=== PATIENT | male | born 1940 | race Caucasian/White ===

== ENCOUNTER 2018-01-06 22:56 | Inpatient (IN) | payer OTHER, MEDICARE ==
[~2018-01-06] VITALS: Ht 188 cm; Wt 96.0 kg
[~2018-01-06 22:56] MED LIST: ALEN70TA39 PO; ALPR0.25 PO; ASPI81 PO; CHOL50006 PO; CILO100T PO; COZA100T PO; GABA300C3 PO; GLIP5TAB8 PO; LANTUS2P SC; LASI20TA PO; LEVO.075 PO; METO50CR PO; NOVOLOGP2 SQ; PANT20 PO; POLY17S PO; RIFA550 PO; TAB-TAB PO; TRAD5TAB PO; ZOCO40TA PO; ZOFR4TAB3 PO
[2018-01-06 23:08] VITALS: BP 163/77; PULSE 99; RESP 18; TEMP 98.4; O2SAT 99
[2018-01-06] MEDS ORDERED: SODIUM CHLORIDE 0.9% FLUSH 10 ML FLUSH IV FLUSH PRN (23:15)
--- NOTE | 2018-01-06 23:34 | PD ---
HPI Chief Complaint: Fall Time Seen by Provider: 23:09 Travel History International Travel<30 days: No Contact w/Intl Traveler<30days: No Traveled to known affect area: No History of Present Illness HPI 77-year-old male with history of liver cancer, ascites, on Eliquis for A. fib, brought in by ambulance from home for evaluation after a mechanical fall. The patient reports that he was on his steps at home when he fell. He denies head injury or LOC. He now complains of neck and anterior chest wall pain. He denies pain in any other joint or extremity. EMS noted that he has several skin tears on his upper and lower extremities that are in various stages of healing. They did apply sterile dressings to these wounds. Patient denies abdominal or pelvis pain. PFSH Past Medical History Hx Anticoagulant Therapy: Yes Blood Disorders: No Heart Rhythm Problems: Yes (ATR. FIB) Cancer: No Cardiovascular Problems: Yes (TRIPLE BYPASS, PAD) High Cholesterol: Yes Chemotherapy: Yes (LIVER CA ) Diabetes: Yes Diminished Hearing: No Endocrine: Yes Gastrointestinal Disorders: No Genitourinary: No Hepatitis: No Hiatal Hernia: No Hypertension: Yes Immune Disorder: No Musculoskeletal: No Neurologic: No Psychiatric: No Reproductive: No Respiratory: Yes (copd, sleep apnea) Immunizations Current: Yes Myocardial Infarction: Yes (x1) Sleep Apnea: Yes (CPAP) Thyroid Disease: Yes Past Surgical History AICD: No Appendectomy: Yes Arteriovenous Shunt: No Cardiac Surgery: Yes (carotid surgery misael, triple by-pass) Eye Surgery: Yes (cataract removal) Insulin Pump: No Joint Replacement: No Pacemaker: No Other Surgery: Yes Social History Alcohol Use: No Tobacco Use: No Substance Use: No Allergies-Medications (Allergen,Severity, Reaction): Coded Allergies: No Known Allergies (Verified Adverse Reaction, Unknown, 01/06/18) Reported Meds & Prescriptions Reported Meds & Active Scripts Active Lasix (Furosemide) 20 Mg Tab 20 Mg PO DAILY 14 Days Polyethylene Glycol 3350 (Polyethylene Glycol) 3,350 Nf Pow 17 Gm PO DAILY 7 Days Reported Zofran ODT (Ondansetron HCl) 4 Mg Tab 4 Mg PO Q6HR Protonix (Pantoprazole Sodium) 20 Mg Tabdr 20 Mg PO DAILY Vitamin D (Cholecalciferol) 5,000 Unit Tab 2,000 Unit PO DAILY Lantus (Insulin Glargine) 100 Units/Ml Inj 1 Unit SC HS Novolog (Insulin Aspart) 100 Units/ML Inj 10 Units SQ DAILY Zocor 40 mg (Simvastatin) 40 Mg Tab 1 Tab PO HS Xifaxan 550 Mg Tab (Rifaximin) 550 Mg Tab 550 Mg PO BID Tradjenta (Linagliptin) 5 Mg Tab 5 Mg PO DAILY Alendronate Sodium 70 Mg Tab 70 Mg PO Q7D Glipizide 5 Mg Tab 5 Mg PO BIDAC GIVE 30 MINUTES PRIOR TO A MEAL Multivitamin (Multivitamins) 1 Tab Tab 1 Tab PO BID Gabapentin 300 Mg Cap 300 Mg PO BID Alprazolam 0.25 Mg Tab 0.25 Mg PO PRN Synthroid (Levothyroxine Sodium) 75 Mcg Tab 75 Mcg PO DAILY Metoprolol Succinate ER (Metoprolol Succinate) 50 Mg Tab 50 Mg PO DAILY Cozaar (Losartan Potassium) 100 Mg Tab 100 Mg PO DAILY Pletal (Cilostazol) 100 Mg Tab 100 Mg PO BID Aspirin 81 Mg Tab 81 Mg PO DAILY stopped on the 21 of january Review of Systems Except as stated in HPI: all other systems reviewed are Neg Physical Exam Narrative GENERAL: Well-developed, well-nourished, elderly-appearing male, awake, alert, no apparent distress, GCS 15. SKIN: Focused skin assessment warm/dry. Bilateral upper and lower extremities with areas of ecchymosis in various stages of healing as well as several skin tears in various stages of healing. HEAD: Atraumatic. Normocephalic. EYES: Pupils equal and round. No scleral icterus. No injection or drainage. ENT: No nasal bleeding or discharge. Mucous membranes pink and moist. NECK: Trachea midline. No JVD. No rigid cervical collar placed by EMS in place. There is midline cervical spine tenderness without step-off. CARDIOVASCULAR: Regular rate and rhythm. RESPIRATORY: No accessory muscle use. Clear to auscultation. Breath sounds equal bilaterally. GASTROINTESTINAL: Abdomen soft, non-tender, distended with fluid wave. MUSCULOSKELETAL: No obvious deformities. No clubbing. No cyanosis. No edema. Moderate anterior chest wall tenderness without crepitus, without step-off, without paradoxical chest wall movement. Pelvis is stable. Normal range of motion in all joints and extremities without obvious bony deformities. Skin exam as above. NEUROLOGICAL: Awake and alert. No obvious cranial nerve deficits. Motor grossly within normal limits. Normal speech. Normal range of motion in all joints and extremities with normal muscle strength. PSYCHIATRIC: Appropriate mood and affect; insight and judgment normal. Data Data Last Documented VS Vital Signs Date Time Temp Pulse Resp B/P (MAP) Pulse Ox O2 Delivery O2 Flow Rate FiO2 01/07/18 01:50 56 18 168/80 (109) 100 Room Air 01/06/18 23:08 98.4 Orders Orders Complete Blood Count With Diff (01/06/18 23:15) Comprehensive Metabolic Panel (01/06/18 23:15) Prothrombin Time / Inr (Pt) (01/06/18 23:15) Act Partial Throm Time (Ptt) (01/06/18 23:15) Iv Access Insert/Monitor (01/06/18 23:15) Ecg Monitoring (01/06/18 23:15) Oximetry (01/06/18 23:15) Sodium Chloride 0.9% Flush (Ns Flush) (01/06/18 23:15) Ct Brain W/O Iv Contrast(Rout) (01/06/18 ) Ct Cerv Spine W/O Contrast (01/06/18 ) Chest, Single Ap (01/06/18 ) Pelvis, Ap Only (Routine) (01/06/18 ) Electrocardiogram (01/07/18 ) Calcium Gluconate Inj (Calcium Gluconate (01/07/18 00:30) Insulin Human Regular Inj (Novolin R Inj (01/07/18 00:30) Sodium Polysty Sulfate Liq (Kayexalate L (01/07/18 00:30) Ckmb (Isoenzyme) Profile (01/07/18 00:29) Troponin I (01/07/18 00:29) Sodium Chlor 0.9% 1000 Ml Inj (Ns 1000 M (01/07/18 00:30) Ct Thorax/ Chest Wo Iv Contras (01/07/18 ) Urinary Catheter Insert/Apply (01/07/18 00:36) Morphine Inj (Morphine Inj) (01/07/18 01:00) [place] Collar (01/07/18 ) CKMB (01/06/18 22:36) CKMB% (01/06/18 22:36) Labs Laboratory Tests Test 01/06/18 22:36 White Blood Count 13.0 TH/MM3 Red Blood Count 5.33 MIL/MM3 Hemoglobin 16.0 GM/DL Hematocrit 47.3 % Mean Corpuscular Volume 88.7 FL Mean Corpuscular Hemoglobin 29.9 PG Mean Corpuscular Hemoglobin Concent 33.8 % Red Cell Distribution Width 15.7 % Platelet Count 183 TH/MM3 Mean Platelet Volume 7.7 FL Neutrophils (%) (Auto) 86.1 % Lymphocytes (%) (Auto) 3.6 % Monocytes (%) (Auto) 10.0 % Eosinophils (%) (Auto) 0.2 % Basophils (%) (Auto) 0.1 % Neutrophils # (Auto) 11.2 TH/MM3 Lymphocytes # (Auto) 0.5 TH/MM3 Monocytes # (Auto) 1.3 TH/MM3 Eosinophils # (Auto) 0.0 TH/MM3 Basophils # (Auto) 0.0 TH/MM3 CBC Comment AUTO DIFF Differential Comment FINAL DIFF MANUAL Platelet Estimate NORMAL Platelet Morphology Comment NORMAL Prothrombin Time 12.7 SEC Prothromb Time International Ratio 1.3 RATIO Activated Partial Thromboplast Time 28.9 SEC Blood Urea Nitrogen 45 MG/DL Creatinine 1.94 MG/DL Random Glucose 345 MG/DL Total Protein 6.8 GM/DL Albumin 3.3 GM/DL Calcium Level 9.1 MG/DL Alkaline Phosphatase 932 U/L Aspartate Amino Transf (AST/SGOT) 115 U/L Alanine Aminotransferase (ALT/SGPT) 133 U/L Total Bilirubin 1.4 MG/DL Sodium Level 119 MEQ/L Potassium Level 6.9 MEQ/L Chloride Level 84 MEQ/L Carbon Dioxide Level 24.5 MEQ/L Anion Gap 11 MEQ/L Estimat Glomerular Filtration Rate 34 ML/MIN Total Creatine Kinase 134 U/L Troponin I 0.07 NG/ML [facility] Medical Decision Making Medical Screen Exam Complete: Yes Emergency Medical Condition: Yes Differential Diagnosis Mechanical fall, intracranial trauma, cervical spine injury, intrathoracic trauma Narrative Course Initial vital signs show heart rate 99, blood pressure 163/77, pulse ox 99% on room air, oral temp of 98.4F. CBC: WBC 13, hemoglobin 16, hematocrit 47.3, platelets 183, neutrophils 86%. CMP is remarkable for sodium 119, potassium 6.9, chloride 84, BUN 45, cranny 1.94, GFR 34, random glucose 345, AST 115, ALT 133, alkaline phosphatase 932. Patient was written for IV insulin, Kayexalate, liter normal saline IV, and a Rivera catheter. I discussed the patient with on-call clinical resource director Dr. Das. I believe the patient's lab values are likely secondary to dehydration. He agrees with aforementioned management. CT brain: CONCLUSION: 1. Age-appropriate atrophy. 2. No acute findings the brain. CT cervical spine: CONCLUSION: 1. Fractures at C2 involving the left body, junction of the left pedicle, and displaced fracture of the right lamina. Presumed Concentric impression upon the cord at this level. 2. Displaced fracture of the right lamina of C3 indenting on the bony spinal canal. 3. Right-sided facet fractures involving inferior articular facet of C3 and superior articular facet of C4. No evidence of locked or perched facets. 4. Mildly comminuted fracture of the C7 vertebral body with one fracture line extending from superior to inferior endplate. No associated compression deformity. CT thorax: CONCLUSION: 1. Nondisplaced fracture of the posterolateral right 9th rib with a moderate size right pleural effusion. 2. No focal opacities in the lung and no evidence of pneumothorax. Patient was made aware of all findings. Again he is able to move all of his extremities. He continues to complain of neck pain. He tells me he has been having several falls recently. Case discussed with on-call neurosurgeon Dr. Nesbitt who recommends [place] collar and will evaluate the patient in consultation. Case discussed with licensed [employer] real [employer] appraiser Dr. Deal. Although the patient does have traumatic injuries, he does have severe metabolic derangements and would be better served on the licensed [employer] appraiser service. He agrees to admit the patient to his service. Critical Care Narrative Aggregate critical care time was 35 minutes. Time to perform other separately billable procedures was not included in the critical care time. My time did not include minutes spent treating any other patients simultaneously or on activities that did not directly contribute to the patient's treatment. The services I provided to this patient were to treat and/or prevent clinically significant deterioration that could result in: , permanent disability, worsening clinical condition. I provided critical care services requiring my management, as noted below: Chart data review, documentation time, medication orders and management, vital sign assessments/reviewing monitor data, ordering and reviewing lab tests, ordering and interpreting/reviewing x-rays and diagnostic studies, care of the patient and discussion of the patient with the admitting physicians. Diagnosis Primary Impression: Fall Qualified Codes: W19.XXXA - Unspecified fall, initial encounter Additional Impressions: Hyponatremia Hyperkalemia Acute kidney injury Closed cervical spine fracture Qualified Codes: S12.9XXA - Fracture of neck, unspecified, initial encounter Rib fracture Qualified Codes: S22.31XA - Fracture of one rib, right side, initial encounter for closed fracture Hemothorax on right Admitting Information Admitting Physician Requests: Admit Stefan Baron MD Jan 06, 2018 23:34
[2018-01-06 23:49] LABS: AUTOMATED NEUTROPHIL # 11.2 TH/MM3 (1.8-7.7); BASOPHIL % 0.1 % (0.0-2.0); EOSINOPHIL % 0.2 % (0.0-4.0); HEMATOCRIT 47.3 % (39.0-51.0); LYMPH % 3.6 % (9.0-44.0); LYMPHOCYTE # 0.5 TH/MM3 (1.0-4.8); MEAN CELL VOLUME 88.7 FL (80.0-100.0); MEAN CORPUSCULAR HEMOGLOBIN 29.9 PG (27.0-34.0); MEAN CORPUSCULAR HGB CONC 33.8 % (32.0-36.0); MEAN PLATELET VOLUME 7.7 FL (7.0-11.0); MONOCYTE # 1.3 TH/MM3 (0-0.9); NEUT % 86.1 % (16.0-70.0); PLATELET COUNT 183 TH/MM3 (150-450); RED BLOOD COUNT 5.33 MIL/MM3 (4.50-5.90); RED CELL DISTRIBUTION WIDTH 15.7 % (11.6-17.2)
[2018-01-07] VITALS (12 sets, daily range): BP systolic 111–170; BP diastolic 65–93; PULSE 55–76; RESP 10–20; TEMP 97.3–97.7; O2SAT 93–100
[2018-01-07 00:05] LABS: INTERNATIONAL NORMALIZED RATIO 1.3 RATIO; PROTHROMBIN TIME - PATIENT 12.7 SEC (9.8-11.6)
--- NOTE | 2018-01-07 00:11 | RADRPT ---
EXAM DATE/TIME: 01/06/2018 23:38 [facility] COMPARISON: No previous studies available for comparison. INDICATIONS : Trauma due to fall. MEDICAL HISTORY : Diabetes mellitus type II. Chronic obstructive pulmonary disease. Hypertension. Cardiovascular d isease SURGICAL HISTORY : Triple bypass surgery. Liver surgery per pt. ENCOUNTER: Initial ACUITY: 1 day PAIN SCORE: 9/10 LOCATION: Right chest FINDINGS: A single view of the chest demonstrates the lungs to be symmetrically aerated without evidence of mas s, infiltrate or effusion. Superimposed upon the lateral left mid and upper chest there is a vertica l lucency that measures up to 3 mm in length. This is of uncertain significance. The cardiomediasti nal contours are unremarkable. Osseous structures are intact. Prior median sternotomy with 8 sterna l wire sutures; discontinuities of the superior 2 wires sutures are present. CONCLUSION: 1. No focal infiltrates in the lung. 2. There is an unusual appearing 3 mm vertical lucency superimposed upon the lateral left shaft. Thi s would be an unusual appearance for pneumothorax and could possibly be superficial to the lungs. Gi zena the history of trauma, however, I would recommend performing a repeat chest x-ray in erect positi on and expiration. Aureliano Carrillo MD on January 07, 2018 at 0:07 Board Certified Radiologist. This report was verified electronically.
--- NOTE | 2018-01-07 00:12 | RADRPT ---
EXAM DATE/TIME: 01/06/2018 23:45 [facility] COMPARISON: No previous studies available for comparison. INDICATIONS : Trauma due to fall. MEDICAL HISTORY : Diabetes mellitus type II. Hypertension Chronic obstructive pulmonary disease. Cardiovascular dis ease. SURGICAL HISTORY : Triple bypass surgery. Liver surgery per pt. ENCOUNTER: Initial ACUITY: 1 day PAIN SCORE: 0/10 LOCATION: pelvis FINDINGS: Osseous structures are suboptimally visualized due to significant soft tissue scattered imposed upon the pelvis probably due to body habitus. No gross bony abnormality seen. Prominent vascular calcifi cation in the proximal thigh. No radiopaque foreign bodies. CONCLUSION: No fracture seen on this limited quality exam. Aureliano Carrillo MD on January 07, 2018 at 0:10 Board Certified Radiologist. This report was verified electronically.
[2018-01-07 00:14] LABS: ALBUMIN 3.3 GM/DL (3.4-5.0); ALKALINE PHOSPHATASE 932 U/L (45-117); ALT (GPT) 133 U/L (12-78); AST (GOT) 115 U/L (15-37); BICARBONATE 24.5 MEQ/L (21.0-32.0); BLOOD UREA NITROGEN 45 MG/DL (7-18); CALCIUM 9.1 MG/DL (8.5-10.1); CHLORIDE 84 MEQ/L (98-107); CREATININE 1.94 MG/DL (0.60-1.30); GLOMERULAR FILTRATION RATE 34 ML/MIN (>89); GLUCOSE,RANDOM 345 MG/DL (74-106); TOTAL BILIRUBIN ADULT 1.4 MG/DL (0.2-1.0); TOTAL PROTEIN 6.8 GM/DL (6.4-8.2)
[2018-01-07 00:17] LABS: SODIUM (NA) 119 MEQ/L (136-145)
[2018-01-07] MEDS ORDERED: SODIUM CHLOR 0.9% 1000 ML INJ 1,000 ML IV ONE (00:30)
[2018-01-07] MEDS ORDERED: CALCIUM GLUCONATE 10% 1 GM/10 ML VIAL IV PUSH ONE (00:30)
[2018-01-07] MEDS ORDERED: SODIUM POLYSTYRENE SULFONATE SUSP 15 GM/60 ML CUP PO ONE (00:30)
[2018-01-07] MEDS ORDERED: INSULIN HUMAN REGULAR 1,000 UNITS/10 ML VIAL IV PUSH ONE (00:30)
[2018-01-07] MEDS ORDERED: MORPHINE SULFATE 2 MG/ML INJ IV PUSH ONE (01:00)
--- NOTE | 2018-01-07 01:32 | RADRPT ---
EXAM DATE/TIME: 01/07/2018 01:07 [facility] COMPARISON: No previous studies available for comparison. INDICATIONS : Trauma, fall. RADIATION DOSE: 40.82 CTDIvol (mGy) MEDICAL HISTORY : Hypertension. Carcinoma, hepatocellular. Diabetes mellitus type 2. SURGICAL HISTORY : None. ENCOUNTER: Initial ACUITY: 1 day PAIN SCALE: 0/10 LOCATION: cranial TECHNIQUE: Multiple contiguous axial images were obtained of the head. Using automated exposure control and adj ustment of the mA and/or kV according to patient size, radiation dose was kept as low as reasonably a chievable to obtain optimal diagnostic quality images. DICOM format image data is available electro nically for review and comparison. FINDINGS: CEREBRUM: The ventricles are normal for age. No evidence of midline shift, mass lesion, hemorrhage or acute in farction. No extra-axial fluid collections are seen. POSTERIOR FOSSA: The cerebellum and brainstem are intact. The 4th ventricle is midline. The cerebellopontine angle i s unremarkable. EXTRACRANIAL: The visualized portion of the orbits is intact. SKULL: The calvaria is intact. No evidence of skull fracture. CONCLUSION: 1. Age-appropriate atrophy. 2. No acute findings the brain. Aureliano Carrillo MD on January 07, 2018 at 1:29 Board Certified Radiologist. This report was verified electronically.
--- NOTE | 2018-01-07 02:01 | RADRPT ---
EXAM DATE/TIME: 01/07/2018 01:07 [facility] COMPARISON: No previous studies available for comparison. INDICATIONS : Trauma, fall. RADIATION DOSE: 16.59 CTDIvol (mGy) MEDICAL HISTORY : Hypertension. Myocardial infarction. Carcinoma, hepatocellular. SURGICAL HISTORY : None. ENCOUNTER: Initial ACUITY: 1 day PAIN SCALE: 5/10 LOCATION: neck TECHNIQUE: Volumetric scanning of the cervical spine was performed. Multiplanar reconstructions in the sagittal, coronal and oblique axial planes were performed. Using automated exposure control and adjustment o f the mA and/or kV according to patient size, radiation dose was kept as low as reasonably achievable to obtain optimal diagnostic quality images. DICOM format image data is available electronically f or review and comparison. FINDINGS: C1 is intact. There is a nondisplaced fracture of the left body of C2 extending into the foramen transversarium and into the junction with the left pedicle. There is a displaced fracture of the right lamina which co urses obliquely and causes mild indentation on the dorsal lateral aspect of the bony spinal canal. T he margins of the thecal sac are poorly delineated at the level of C2, but appear to be concentricall y narrowed with the AP dimension of the thecal sac decreased to 6 mm. At C3, there is a displaced fracture fragment of the right lamina indenting on the thecal sac approxi mately 3 mm. There is a comminuted fracture of the anterior inferior articular facet on the right si de. The facet joint on the left side is intact. At C4, there is a nondisplaced fracture of the right superior articular facet. At C5-6, there is no fracture, but there is prominent posterior hypertrophy of the right uncovertebra l joint causing severe right-sided bony neural foraminal stenosis. At C7, there are hairline fractures through the vertebral body both the left and right side with one fracture line extending from superior to inferior endplate. The posterior cortex is intact and the p osterior elements are intact. There is straightening of the cervical lordosis. No compression deformities seen. CONCLUSION: 1. Fractures at C2 involving the left body, junction of the left pedicle, and displaced fracture of t he right lamina. Presumed Concentric impression upon the cord at this level. 2. Displaced fracture of the right lamina of C3 indenting on the bony spinal canal. 3. Right-sided facet fractures involving inferior articular facet of C3 and superior articular facet of C4. No evidence of locked or perched facets. 4. Mildly comminuted fracture of the C7 vertebral body with one fracture line extending from superior to inferior endplate. No associated compression deformity. Aureliano Carrillo MD on January 07, 2018 at 1:32 Board Certified Radiologist. This report was verified electronically.
--- NOTE | 2018-01-07 02:06 | RADRPT ---
EXAM DATE/TIME: 01/07/2018 01:12 [facility] COMPARISON: CT ABDOMEN & PELVIS W/O CONTRAST, May 11, 2016, 18:39. INDICATIONS : Trauma, fall. RADIATION DOSE: 16.62 CTDIvol (mGy) MEDICAL HISTORY : Myocardial infarction. Carcinoma, hepatocellular. Diabetes mellitus type 2. COPD. SURGICAL HISTORY : None. ENCOUNTER: Initial ACUITY: 1 day PAIN SCALE: 5/10 LOCATION: chest TECHNIQUE: Volumetric scanning of the chest was performed. Using automated exposure control and adjustment of t he mA and/or kV according to patient size, radiation dose was kept as low as reasonably achievable to obtain optimal diagnostic quality images. DICOM format image data is available electronically for r eview and comparison. Follow-up recommendations for detected pulmonary nodules are based at a minimum on nodule size and pa tient risk factors according to Fleischner Society Guidelines. FINDINGS: There is a moderate right pleural effusion which measures up to 1.9 cm in AP dimension. A nondisplac ed hairline fracture of the posterolateral right 6th rib. No evidence of pneumothorax. Left lung is clear. There are calcified pleural plaques in the anterior lateral left midlung. Evidence of prior median sternotomy. No evidence for axillary adenopathy. The upper abdomen, there is severe ascites. The liver is small with lobular margins (history of hepa tocellular carcinoma). Dense calcification in the contracted gallbladder. CONCLUSION: 1. Nondisplaced fracture of the posterolateral right 9th rib with a moderate size right pleural effus ion. 2. No focal opacities in the lung and no evidence of pneumothorax. Aureliano Carrillo MD on January 07, 2018 at 2:00 Board Certified Radiologist. This report was verified electronically.
[2018-01-07 02:14] LABS: TROPONIN I 0.07 NG/ML (0.02-0.05)
[2018-01-07] MEDS ORDERED: ONDANSETRON HCL 4 MG/2 ML VIAL IV PUSH PRN (02:30)
[2018-01-07] MEDS ORDERED: MAGNESIUM HYDROXIDE SUSP 30 ML CUP PO PRN (02:30)
[2018-01-07] MEDS ORDERED: SENNOSIDES 8.6 MG TAB PO PRN (02:30)
[2018-01-07] MEDS ORDERED: LACTULOSE SYRUP 20 GM/30 ML CUP PO PRN (02:30)
[2018-01-07] MEDS ORDERED: CHLORHEXIDINE GLUCONATE 2 % 1 PACK (2 CLOTHS) TOP PRN (02:30)
[2018-01-07] MEDS ORDERED: DEXTROSE 50% IN WATER 50 ML VIAL(D50) IV PUSH PRN (02:30)
[2018-01-07] MEDS ORDERED: MISCELLANEOUS NURSING INFORMATION XX SCH (02:30)
[2018-01-07] MEDS ORDERED: RESP: ALBUTEROL 2.5 MG/IPRATROPIUM 0.5 MG NEB (PRN) INH (02:30)
[2018-01-07] MEDS ORDERED: BISACODYL 10 MG SUPP RECTAL PRN (02:30)
--- NOTE | 2018-01-07 02:37 | HHI.HP ---
HPI Service Critical Care Medicine Primary Care Physician Unknown Admission Diagnosis fall, hyponatremia, hyperkalemia, ADELFO, cervical fractures, rib fx Diagnosis: Chief Complaint: fall Travel History International Travel<30 Days: No Contact w/Intl Traveler <30 Da: No Traveled to Known Affected Are: No History of Present Illness This is a 77-year-old male with a history of hepatocellular carcinoma which has been poorly responsive to therapy, ascites, atrial fibrillation who was brought in by ambulance from home for evaluation after a fall from standing. The patient is somewhat somnolent and very poor historian, and is very difficult to obtain a history from. He does state that his neck hurts. He denies loss of consciousness. He has a noncontrasted head CT which is negative, but a C-spine CT with significant C-spine vertebral fractures including a C2-C3 fracture which causes impingement on the cord. Patient denies numbness or weakness in his extremities. Of note, the patient is followed by Dr. Del Toro in medical oncology and was recently seen on 12/31/2017. The remainder of the history is obtained from Dr. Del Toro's note from the same date, which is quite extensive and is very detailed in accounting for the patient's current and past medical and oncologic history. Today, the patient has severe electrolyte abnormalities, including severe hyponatremia with a sodium of 119, potassium of 6.9, creatinine 1.94, T bili of 1.4, AST 115, ALT 133, alk phos 932, troponin of 0.07, CK-MB of 10.3, CK 134, INR 1.3. The patient has chronic hyponatremia and most recently had a sodium of 123 and his clinic visit on 12/31. The clinic note references the fact that the patient is likely end-stage liver disease and hepatocellular carcinoma and hospice may be more appropriate. Review of systems is severely limited due to the patient's mental status, the fact that he is a poor historian. Review of Systems ROS Limitations: Clinical Condition, Altered Mental Status, Poor Historian Past Family Social History Allergies: Coded Allergies: No Known Allergies (Verified Allergy, Unknown, 01/07/18) Past Medical History For detailed past history, please refer to Dr. Del Toro is medical oncology note dated 12/31/2017. Due to the patient's mental status, the remainder of the history is obtained from the medical record. 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 Trevino Acute OR in 1995 Hepatocellular carcinoma originally diagnosed in 2014 Hypertension Peripheral neuropathy Osteoporosis Chronic hyponatremia Chronic kidney disease, unknown stage Past Surgical History Bilateral carotid endarterectomies by Dr. Miranda greater than 10 years ago Left lower extremity bypass surgery also by Dr. Miranda also more than 10 years ago Three-vessel CABG in 1995 Colonoscopy in 2013 Cataract removal in 1989 Reported Medications Lasix (Furosemide) 20 Mg Tab 20 Mg PO DAILY 14 Days Polyethylene Glycol 3350 (Polyethylene Glycol) 3,350 Nf Pow 17 Gm PO DAILY 7 Days Zofran ODT (Ondansetron HCl) 4 Mg Tab 4 Mg PO Q6HR Protonix (Pantoprazole Sodium) 20 Mg Tabdr 20 Mg PO DAILY Vitamin D (Cholecalciferol) 5,000 Unit Tab 2,000 Unit PO DAILY Lantus (Insulin Glargine) 100 Units/Ml Inj 1 Unit SC HS Novolog (Insulin Aspart) 100 Units/ML Inj 10 Units SQ DAILY Zocor 40 mg (Simvastatin) 40 Mg Tab 1 Tab PO HS Xifaxan 550 Mg Tab (Rifaximin) 550 Mg Tab 550 Mg PO BID Tradjenta (Linagliptin) 5 Mg Tab 5 Mg PO DAILY Alendronate Sodium 70 Mg Tab 70 Mg PO Q7D Glipizide 5 Mg Tab 5 Mg PO BIDAC GIVE 30 MINUTES PRIOR TO A MEAL Multivitamin (Multivitamins) 1 Tab Tab 1 Tab PO BID Gabapentin 300 Mg Cap 300 Mg PO BID Alprazolam 0.25 Mg Tab 0.25 Mg PO PRN Synthroid (Levothyroxine Sodium) 75 Mcg Tab 75 Mcg PO DAILY Metoprolol Succinate ER (Metoprolol Succinate) 50 Mg Tab 50 Mg PO DAILY Cozaar (Losartan Potassium) 100 Mg Tab 100 Mg PO DAILY Pletal (Cilostazol) 100 Mg Tab 100 Mg PO BID Aspirin 81 Mg Tab 81 Mg PO DAILY stopped on the 21 of january Active Ordered Medications See MAR Family History Reviewed in the chart and found to be noncontributory to his acute illness Social History Former [id number] smoker but quit greater than 20 years ago. Heavy EtOH use up to 3 years ago. Physical Exam Vital Signs Vital Signs Date Time Temp Pulse Resp B/P (MAP) Pulse Ox O2 Delivery O2 Flow Rate FiO2 01/07/18 01:50 56 18 168/80 (109) 100 Room Air 01/06/18 23:08 98.4 99 18 163/77 (105) 99 Physical Exam GENERAL: Frail elderly male, cachectic, lying in bed, c-collar in place, in distress due to neck pain HEENT: Normocephalic. Atraumatic. Pupils equal, round, reactive, conjugate. Mucous membranes are moist NECK: Trachea is midline. There is no JVD. C-collar in place CHEST: Equal chest rise. Nasal cannula oxygen. CARDIOVASCULAR: Normal rate, irregularly irregular rhythm. A. fib by telemetry. ABDOMEN: Soft, nontender, moderately distended. No guarding. Positive fluid wave. MUSCULOSKELETAL: Pulses 2+. No peripheral edema. NEUROLOGICAL: RASS -2. Oriented to person and place. Muscle skeletal strength 5 out of 5 in all 4 extremities. Follows commands. Sensation grossly intact. Laboratory Laboratory Tests Test 01/06/18 22:36 White Blood Count 13.0 Red Blood Count 5.33 Hemoglobin 16.0 Hematocrit 47.3 Mean Corpuscular Volume 88.7 Mean Corpuscular Hemoglobin 29.9 Mean Corpuscular Hemoglobin Concent 33.8 Red Cell Distribution Width 15.7 Platelet Count 183 Mean Platelet Volume 7.7 Neutrophils (%) (Auto) 86.1 Lymphocytes (%) (Auto) 3.6 Monocytes (%) (Auto) 10.0 Eosinophils (%) (Auto) 0.2 Basophils (%) (Auto) 0.1 Neutrophils # (Auto) 11.2 Lymphocytes # (Auto) 0.5 Monocytes # (Auto) 1.3 Eosinophils # (Auto) 0.0 Basophils # (Auto) 0.0 CBC Comment AUTO DIFF Differential Comment FINAL DIFF MANUAL Platelet Estimate NORMAL Platelet Morphology Comment NORMAL Prothrombin Time 12.7 Prothromb Time International Ratio 1.3 Activated Partial Thromboplast Time 28.9 Blood Urea Nitrogen 45 Creatinine 1.94 Random Glucose 345 Total Protein 6.8 Albumin 3.3 Calcium Level 9.1 Alkaline Phosphatase 932 Aspartate Amino Transf (AST/SGOT) 115 Alanine Aminotransferase (ALT/SGPT) 133 Total Bilirubin 1.4 Sodium Level 119 Potassium Level 6.9 Chloride Level 84 Carbon Dioxide Level 24.5 Anion Gap 11 Estimat Glomerular Filtration Rate 34 Total Creatine Kinase 134 Creatine Kinase MB 10.3 Troponin I 0.07 Result Diagram: 01/06/18223501/06/182235 Imaging Last Impressions Chest CT 01/07/18 0000 Signed Impressions: Service Date/Time: Sunday, January 07, 2018 01:12 - CONCLUSION: 1. Nondisplaced fracture of the posterolateral right 9th rib with a moderate size right pleural effusion. 2. No focal opacities in the lung and no evidence of pneumothorax. Aureliano Carrillo MD Pelvis X-Ray 01/06/18 0000 Signed Impressions: Service Date/Time: January 23:45 - CONCLUSION: No fracture seen on this limited quality exam. Aureliano Carrillo MD Head CT 01/06/18 0000 Signed Impressions: Service Date/Time: Sunday, January 07, 2018 01:07 - CONCLUSION: 1. Age-appropriate atrophy. 2. No acute findings the brain. Aureliano Carrillo MD Chest X-Ray 01/06/18 0000 Signed Impressions: Service Date/Time: January 23:38 - CONCLUSION: 1. No focal infiltrates in the lung. 2. There is an unusual appearing 3 mm vertical lucency superimposed upon the lateral left shaft. This would be an unusual appearance for pneumothorax and could possibly be superficial to the lungs. Given the history of trauma, however, I would recommend performing a repeat chest x-ray in erect position and expiration. Aureliano Carrillo MD Cervical Spine CT 01/06/18 0000 Signed Impressions: Service Date/Time: Sunday, January 07, 2018 01:07 - CONCLUSION: 1. Fractures at C2 involving the left body, junction of the left pedicle, and displaced fracture of the right lamina. Presumed Concentric impression upon the cord at this level. 2. Displaced fracture of the right lamina of C3 indenting on the bony spinal canal. 3. Right-sided facet fractures involving inferior articular facet of C3 and superior articular facet of C4. No evidence of locked or perched facets. 4. Mildly comminuted fracture of the C7 vertebral body with one fracture line extending from superior to inferior endplate. No associated compression deformity. Aureliano Carrillo MD [place] VTE Risk Assessment [place]rini VTE Risk Assessment: Mod/High Risk (score >= 2) VTE Pharm Contraindication: Spinal surgery Caprini Risk Assessment Model Point Value = 1 Point Value = 2 Point Value = 3 Point Value = 5 Age 41-60 Minor surgery BMI > 25 kg/m2 Swollen legs Varicose veins or History of unexplained or recurrent spontaneous Oral contraceptives or hormone replacement Sepsis (< 1 month) Serious lung disease, including pneumonia (< 1 month) Abnormal pulmonary function Acute myocardial infarction Congestive heart failure (< 1 month) History of inflammatory bowel disease Medical patient at bed rest Age 61-74 Arthroscopic surgery Major open surgery (> 45 min) Laparoscopic surgery (> 45 min) Malignancy Confined to bed (> 72 hours) Immobilizing plaster cast Central venous access Age >= 75 History of VTE Family history of VTE Factor V Leiden Prothrombin [id number] Lupus anticoagulant Anticardiolipin antibodies Elevated serum homocysteine Heparin-induced thrombocytopenia Other congenital or acquired thrombophilia Stroke (< 1 month) Elective arthroplasty Hip, pelvis, or leg fracture Acute spinal cord injury (< 1 month) Prophylaxis Regimen Total Risk Factor Score Risk Level Prophylaxis Regimen 0-1 Low Early ambulation 2 Moderate Order ONE of the following: *Sequential Compression Device (SCD) *Heparin 5000 units SQ BID 3-4 Higher Order ONE of the following medications: *Heparin 5000 units SQ TID *Enoxaparin/Lovenox 40 mg SQ daily (WT < 150 kg, CrCl > 30 mL/min) *Enoxaparin/Lovenox 30 mg SQ daily (WT < 150 kg, CrCl > 10-29 mL/min) *Enoxaparin/Lovenox 30 mg SQ BID (WT < 150 kg, CrCl > 30 mL/min) AND/OR *Sequential Compression Device (SCD) 5 or more Highest Order ONE of the following medications: *Heparin 5000 units SQ TID (Preferred with Epidurals) *Enoxaparin/Lovenox 40 mg SQ daily (WT < 150 kg, CrCl > 30 mL/min) *Enoxaparin/Lovenox 30 mg SQ daily (WT < 150 kg, CrCl > 10-29 mL/min) *Enoxaparin/Lovenox 30 mg SQ BID (WT < 150 kg, CrCl > 30 mL/min) AND *Sequential Compression Device (SCD) Assessment and Plan Assessment and Plan Assessment: 77-year-old male with end-stage liver disease and hepatocellular carcinoma with poor response to medical therapy presents after mechanical fall with severe's high cervical fracture. In addition he has severe metabolic derangements consistent with worsening multi-organ failure on a chronic time scale. I agree with Dr. Del Toro's assessment is prior note that this patient is likely end-of-life and hospice appropriate. We will consult palliative care. Serial sodiums and we will check urine studies to evaluate the source of the hyponatremia, although worsening liver failure and hepatorenal syndrome are likely in the differential. Will attempt not to overcorrect his sodium too quickly. We will consult neurosurgery to evaluate the cervical fractures, and although he is neuro intact at present, the fractures appear to be impinging on the cord and may lead to loss of neurologic function. Regardless of function, the patient's liver disease and cancer make him a poor surgical candidate, and he would likely from complications related to an emergent C-spine decompression and fixation. He remains critically ill with a high C-spine fracture as well as multiple electrolyte abnormalities which are all life- threatening, in addition to likely hepatorenal syndrome and worsening of his overall multiorgan system dysfunction. Plan by systems: Neurologic: Metabolic encephalopathy Hepatic encephalopathy C3-C4 cervical fracture with radiographic evidence of impingement on the cord -Frequent neuro checks -nsgy consultation - check ammonia level - [place] J collar - avoid long-acting sedatives. Respiratory: Ninth rib fracture Atelectasis Pleural effusion - unclear if new pleural effusion is sympathetic from volume overload and liver failure vs. possible hemothorax secondary to rib fracture. not currently causing respiratory distress, so will elect not to drain. - wean o2 for goal spo2 > 90% - pulmonary toilet. Cardiovascular: Elevated troponin, likely type II NSTEMI - unlikely to be ACS. no current symptoms. - telemetry. - will not anticoagulate due to new cervical fracture. Renal: Hepatorenal syndrome Acute kidney injury superimposed on chronic renal insufficiency, unknown stage -- Strict I/Os FEN/GI: Severe hyponatremia Severe hyperkalemia Acute protein calorie malnutrition- severe End-stage liver disease Hepatocellular carcinoma - regular diet as tolerated. - serial sodiums - send urine osms, urine sodium, serum osms. - prior recent sodium 123 on 12/31/2017. will not aggressively correct - trend LFTs, BMP - received kayexalate, d50/insulin, calcium in ER. recheck K. Heme/ID: Hepatocellular carcinoma Coagulopathy secondary to end-stage liver disease - poorly responsive to medical therapy - Dr. Del Toro is his primary oncologist -Daily coags, CBC Endocrine: Hyperglycemia of critical illness -- SSI Prophylaxis: GI Prophylaxis PPI DVT Prophylaxis -- SCDs Hold pharmacologic DVT prophylaxis given recent neck fracture along with coagulopathy secondary to end-stage liver disease Lines: Peripheral IVs Dispo: Admit to ICU. Consult palliative care. This patient remains critically ill with one or more organ systems which are or may become a threat to life. I have spent in excess of 33 minutes discontinuously in the care and management of this patient. This time is exclusive of procedures, and includes, but is not limited to, evaluation of the patient, review of the medical record, discussions with family, consultants, nursing staff, or respiratory therapy, and documentation in the medical record. Ramon Deal MD Jan 07, 2018 02:37
[2018-01-07] MEDS: CHLORHEXIDINE GLUCONATE 2 % 1 PACK (2 CLOTHS) TOP SCH (04:00)
[2018-01-07] MEDS ORDERED: NITR0.4S SL (04:46)
[2018-01-07] MEDS ORDERED: TORS20TA PO (04:46)
[2018-01-07] MEDS ORDERED: VITA2000 PO (04:46)
[2018-01-07] MEDS ORDERED: TRAD5TAB PO (04:46)
[2018-01-07] MEDS ORDERED: ALEN1TAB48 PO (04:46)
[2018-01-07] MEDS ORDERED: VITA500T4 PO (04:46)
[2018-01-07] MEDS ORDERED: MAGN100T2 PO (04:46)
[2018-01-07] MEDS ORDERED: PANT20TA2 PO ×2 (04:46)
[2018-01-07] MEDS ORDERED: APIX5TAB PO (04:46)
[2018-01-07] MEDS ORDERED: XIFA550T4 PO (04:46)
[2018-01-07] MEDS ORDERED: VITA1000 PO (04:46)
[2018-01-07] MEDS ORDERED: MULT-65 PO (04:46)
[2018-01-07] MEDS ORDERED: GLIP5TAB8 PO (04:46)
[2018-01-07] MEDS ORDERED: METO1TAB9 PO (04:46)
[2018-01-07] MEDS ORDERED: OXYC1TAB63 PO (04:46)
[2018-01-07] MEDS ORDERED: LACT10SO PO (04:46)
[2018-01-07] MEDS ORDERED: GABA300C5 PO (04:46)
[2018-01-07] MEDS ORDERED: CALC1TAB12 PO (04:46)
[2018-01-07] MEDS ORDERED: LEVO75TA3 PO (04:46)
[2018-01-07] MEDS ORDERED: NOVO7030P2 SQ (04:46)
[2018-01-07] MEDS ORDERED: POLY17S PO (04:46)
[2018-01-07] MEDS ORDERED: SPIR50TA PO (04:46)
[2018-01-07] MEDS ORDERED: ALPR0.25 PO (04:46)
[2018-01-07 04:50] LABS: CREATININE, RANDOM URINE 126.4 MG/DL; SODIUM,RANDOM URINE LESS THAN 5 MEQ/L
[2018-01-07] MEDS: INSULIN NovoLIN REGULAR SUPPLEMENTAL SCALE SQ SCH ×3 (06:00→17:23)
[2018-01-07] MEDS: HYDROmorphone HCL PF 2 MG/ML VIAL IV PUSH PRN ×3 (06:06→16:05)
[2018-01-07 06:19] LABS: HEMATOCRIT 44.2 % (39.0-51.0); HEMOGLOBIN 14.8 GM/DL (13.0-17.0); MEAN CELL VOLUME 89.4 FL (80.0-100.0); MEAN CORPUSCULAR HGB CONC 33.5 % (32.0-36.0); MEAN PLATELET VOLUME 7.9 FL (7.0-11.0); PLATELET COUNT 169 TH/MM3 (150-450); RED BLOOD COUNT 4.94 MIL/MM3 (4.50-5.90); RED CELL DISTRIBUTION WIDTH 15.5 % (11.6-17.2); WHITE BLOOD COUNT 14.4 TH/MM3 (4.0-11.0)
[2018-01-07 06:30] LABS: INTERNATIONAL NORMALIZED RATIO 1.2 RATIO; PROTHROMBIN TIME - PATIENT 12.2 SEC (9.8-11.6)
[2018-01-07] MEDS: PANTOPRAZOLE SODIUM 40 MG VIAL IV PUSH SCH (08:14)
[2018-01-07 08:16] LABS: OSMOLALITY,URINE 797 MOSM/KG (300-1300)
[2018-01-07] MEDS: DOCUSATE SODIUM 50 MG/SENNA 8.6 MG TAB PO SCH ×2 (09:00→21:00)
--- NOTE | 2018-01-07 09:04 | EKG ---
Date Performed: 01/07/2018 Time Performed: 00:34:16 PTAGE: 77 years EKG: ATRIAL FLUTTER/TACHYCARDIA INDETERMINATE AXIS RIGHT BUNDLE BRANCH BLOCK LEFT POSTERIOR FASC ICULAR BLOCK POSSIBLE ANTERIOR MYOCARDIAL INFARCTION INFERIOR MYOCARDIAL INFARCTION ABNORMAL ECG PREVIOUS TRACING : 05/13/2016 10.33 Since the prior tracing, there has been no significant moyer [facility] DOCTOR: Sugar Escudero Interpretating Date/Time 01/07/2018 09:01:01
[2018-01-07 09:47] LABS: ALBUMIN 3.4 GM/DL (3.4-5.0); ALKALINE PHOSPHATASE 945 U/L (45-117); ALT (GPT) 136 U/L (12-78); AST (GOT) 121 U/L (15-37); BICARBONATE 24.9 MEQ/L (21.0-32.0); BLOOD UREA NITROGEN 42 MG/DL (7-18); CALCIUM 9.3 MG/DL (8.5-10.1); CHLORIDE 86 MEQ/L (98-107); CREATININE 1.69 MG/DL (0.60-1.30); GLOMERULAR FILTRATION RATE 40 ML/MIN (>89); GLUCOSE,RANDOM 266 MG/DL (74-106); TOTAL BILIRUBIN ADULT 1.7 MG/DL (0.2-1.0); TOTAL PROTEIN 6.9 GM/DL (6.4-8.2)
[2018-01-07 10:03] LABS: SODIUM (NA) 121 MEQ/L (136-145)
--- NOTE | 2018-01-07 11:37 | RADRPT ---
EXAM DATE/TIME: 01/07/2018 10:15 [facility] COMPARISON: No previous studies available for comparison. INDICATIONS : Fall, abnormal CT. MEDICAL HISTORY : Carcinoma, hepatocellular. Renal disease, end stage. Diabetes mellitus type 2. Hypertension. SURGICAL HISTORY : CABG ENCOUNTER: Initial ACUITY: 1 day PAIN SCORE: 4/10 LOCATION: [facility] TECHNIQUE: Multiplanar, multisequence MRI examination of the cervical spine was performed. FINDINGS: CT scan head revealed fractures of C2- C3, C4 and C7. Spinal canal is small. C2-C3: There is impingement on the anterior thecal space with disc material encroaching on the cord. Spinal stenosis is moderate. There is no increased signal in the cord. C3-C4: Minimal disc bulge is present mild spinal stenosis the bilateral neural foramina encroachment. Simil ar intensity cord is normal. C4-C5: Impingement on the intrathecal space by concentric disc bulging. Minimal posterior impingement is pr esent as well. Spinal stenosis is mild to moderate. Bilateral neural foramina encroachment. C5-C6: Significant right sided osteophytic encroachment on the thecal sac and the right C6 nerve root. Spin al stenosis is significant. C6-C7: Minimal generalized bulging present without significant spinal stenosis. Neural foramina are adequat e. Minimal increased signal superior endplate of C7. C7-T1: Mild interspace ridging without significant spinal stenosis. Increased signal in the interspinous ligaments and soft tissues the neck posteriorly from skull base to C7. CONCLUSION: 1. Significant spinal stenosis at the C2-C3 level and the C5-C6 level. 2. Mild to moderate spinal stenosis at C4-C5. 3. There is some increased signal in the body of C7 with distal compression. 4. Increased signal is present to posteriorly in the spinal ligaments. Bladimir Campa MD FACR on January 07, 2018 at 11:31 Board Certified Radiologist. This report was verified electronically.
--- NOTE | 2018-01-07 11:41 | RADRPT ---
EXAM DATE/TIME: 01/07/2018 09:22 [facility] COMPARISON: No previous studies available for comparison. EXTERNAL COMPARISON : [facility], US ABDOMEN COMPLETE, June 24, 2015[facility], US ABDOMEN LIVER, April 11, 2015. INDICATIONS : Abnormal labs. MEDICAL HISTORY : Myocardial infarction. Hypercholesterolemia. Hypertension. Sleep apnea. Hypothyroidism. Liver cancer. Chemotherapy. Cirrhosis. COPD. A-fib. SURGICAL HISTORY : Appendectomy. CABG. ENCOUNTER: Initial ACUITY: 1 day PAIN SCORE: Nonresponsive. LOCATION: Bilateral flank MEASUREMENTS: RIGHT KIDNEY: 9.2 x 5.9 x 5.6 cm LEFT KIDNEY: 8.4 x 5.7 x 4.7 cm FINDINGS: RIGHT KIDNEY: Small right kidney and echogenic cortex without hydronephrosis. LEFT KIDNEY: Small left kidney without arthrosis. Cortex is echogenic. BLADDER: Within normal limits given the degree of distension. CONCLUSION: 1. Moderate ascites. 2. Small echogenic kidneys suggesting chronic renal disease. Bladimir Campa MD FACR on January 07, 2018 at 11:38 Board Certified Radiologist. This report was verified electronically.
--- NOTE | 2018-01-07 13:00 | PD.CONS ---
Consult Service Palliative Care Consult Requested By Dr. Deal . Primary Care Physician Unknown . Reason for Consultation a. To assist with evaluation and management of symptoms including: Pain, weakness/falls b. To assist medical decision maker(s) with: better understanding of current medical conditions; weighing benefits/burdens of medical treatment options; making medical treatment decisions. . HPI History of Present Illness This 77-year-old male, with a past history of hepatocellular carcinoma, hepatic cirrhosis, chronic kidney disease, chronic hyponatremia, PVD, and diabetes, was admitted through the emergency department after a fall with injuries. The patient was diagnosed by biopsy in February 2015 with hepatic cirrhosis and well-differentiated hepatocellular carcinoma. He underwent multiple chemo ablation procedures in the subsequent couple years, but he has been declining over the past few months. His ascites has been worse, and he has been requiring weekly paracenteses. His weakness has been progressive, and over the past couple weeks he has been trying to use a walker at home but has still had some falls, including the day of admission when he fell back, "knocked a hole in the drywall with his head," and was brought to the hospital. In a recent oncology note, Dr. Del Toro was considering initiating sorafenib, but opined that he was not optimistic that it would help. That medicine had not yet been obtained and the patient has not yet had a dose. In the emergency department last evening, findings included: * Weakness, lethargy * Temp 98.4, pulse 99, respirations 18, blood pressure 163/77, oxygen saturation 100% on room air * White count 13.0, hemoglobin 16.0 * INR 1.3 * Bilirubin 1.4, AST 115, ALT 133 * Sodium 119, creatinine 1.94, albumin 3.3, potassium 6.9 * CT of the brain revealed atrophy but no acute findings * CT of the C-spine revealed fractures of C2, C3, C4, and C7 * MRI of the C-spine revealed some significant stenosis in 2 levels * CT chest revealed fracture of the ninth rib and a right pleural effusion The patient was admitted to the intensive medical care unit. This morning, repeat sodium is 121, and creatinine is 1.69. The consult with neurosurgery is pending, and I have added a consult with oncology (see below). Palliative Care was consulted to assist with symptom management, and to enter into discussions with the patient and family regarding his current illnesses, the prognosis, and the benefits and burdens of the various treatment choices. . Function/Cognitive Trajectory The patient has been declining physically over the past several months, weaker, more ascites, more difficulty functioning and ambulating. He was trying a walker in recent days, but has had more than 1 fall. . Review of Systems ROS Limitations: Altered Mental Status (Patient is lethargic, history from and staff) Constitutional: COMPLAINS OF: Fatigue, Weight loss Endocrine: DENIES: Polyuria Eyes: DENIES: Eye inflammation Ears, nose, mouth, throat: DENIES: Throat pain, Epistaxis Respiratory: DENIES: Shortness of breath Cardiovascular: COMPLAINS OF: Chest pain (Related to his cancer) Gastrointestinal: COMPLAINS OF: Constipation (Intermittent), DENIES: Bloody stools, Diarrhea, Vomiting blood Genitourinary: DENIES: Hematuria Musculoskeletal: COMPLAINS OF: Neck pain (Recent injury), DENIES: Joint Swelling Hematologic/Lymphatics: COMPLAINS OF: Bruising (Extensive on arms and some on leg) Neurologic: DENIES: Localized weakness, Seizures Psychiatric: DENIES: Hallucinations, Agitation Past Family Social History Coded Allergies: No Known Allergies (Verified Allergy, Unknown, 01/07/18) Past Medical History * Hepatocellular carcinoma, persistent/progressive * Chronic hyponatremia * Hepatic cirrhosis, reportedly alcohol induced * COPD * Chronic kidney disease * Osteoporosis * Peripheral arterial disease * Hypertension * type 2 diabetes * Atrial fibrillation * Sleep apnea . Past Surgical History * Appendectomy * Cataract * Right carotid endarterectomy 2006 * Left carotid endarterectomy 2012 * Left femoral endarterectomies * Liver biopsies times 12/28/2014 * CABG * Right hand surgery * Unspecified cervical surgery in the past . Reported Medications Reported Meds & Active Scripts Active Lasix (Furosemide) 20 Mg Tab 20 Mg PO DAILY 14 Days Polyethylene Glycol 3350 (Polyethylene Glycol) 3,350 Nf Pow 17 Gm PO DAILY 7 Days Reported Torsemide 20 Mg Tab 20 Mg PO DAILY Spironolactone 50 Mg Tab 50 Mg PO DAILY Vitamin D-1000 (Cholecalciferol) 1,000 Unit Tab 1,000 Units PO DAILY Calcium 500 +D (Calcium Carbonate-Cholecalciferol) 500-400 Mg-Unit Tab 1 Tab PO BID Vitamin B-12 (Cyanocobalamin) 500 Mcg Tab 1,000 Mcg PO DAILY Multi-Vitamin Daily (Multiple Vitamin) 1 Tab Tab 1 Tab PO DAILY Vitamin D3 (Cholecalciferol) 2,000 Unit Cap 2,000 Units PO DAILY Pantoprazole (Pantoprazole Sodium) 20 Mg Tab 20 Mg PO DAILY Magnesium Citrate 100 Mg Tab 400 Mg PO DAILY PRN Eliquis (Apixaban) 5 Mg Tab 5 Mg PO BID Oxycodone-Acetaminophen 5-325 mg Tab 1 Tab PO Q4H PRN Lactulose Liq (Lactulose) 10 Gm/15 Ml Soln 30 Ml PO Q6H Levothyroxine (Levothyroxine Sodium) 75 Mcg Tab 75 Mcg PO DAILY Xifaxan (Rifaximin) 550 Mg Tab 550 Mg PO Q12HR Pantoprazole (Pantoprazole Sodium) 20 Mg Tab 20 Mg PO DAILY Novolin 70-30 Inj (Insulin Human Isoph/Insulin Regular) 1,000 Unit/10 Ml Vial 35 Units SQ BID Alendronate (Alendronate Sodium) 70 Mg Tab 70 Mg PO Q7D Polyethylene Glycol 3350 Powder (Polyethylene Glycol) 17 Gram Pow 17 Gm PO DAILY Gabapentin 300 Mg Cap 300 Mg PO BID Alprazolam 0.25 Mg Tab 0.25 Mg PO Q4H PRN Nitrostat SL (Nitroglycerin) 0.4 Mg Subl 0.4 Mg SL DIRECTED PRN 1 tablet under the tongue as needed for chest pain. Repeat every 5 minutes for a total of 3 DOSES or call 911 if NO relief. Metoprolol Succinate ER 24 HR (Metoprolol Succinate) 50 Mg Tab 50 Mg PO DAILY Glipizide 5 Mg Tab 5 Mg PO BIDAC Take 30 minutes before a meal Tradjenta (Linagliptin) 5 Mg Tab 5 Mg PO DAILY Zofran ODT (Ondansetron HCl) 4 Mg Tab 4 Mg PO Q6HR Protonix (Pantoprazole Sodium) 20 Mg Tabdr 20 Mg PO DAILY Vitamin D (Cholecalciferol) 5,000 Unit Tab 2,000 Unit PO DAILY Lantus (Insulin Glargine) 100 Units/Ml Inj 1 Unit SC HS Novolog (Insulin Aspart) 100 Units/ML Inj 10 Units SQ DAILY Zocor 40 mg (Simvastatin) 40 Mg Tab 1 Tab PO HS Xifaxan 550 Mg Tab (Rifaximin) 550 Mg Tab 550 Mg PO BID Tradjenta (Linagliptin) 5 Mg Tab 5 Mg PO DAILY Alendronate Sodium 70 Mg Tab 70 Mg PO Q7D Glipizide 5 Mg Tab 5 Mg PO BIDAC GIVE 30 MINUTES PRIOR TO A MEAL Multivitamin (Multivitamins) 1 Tab Tab 1 Tab PO BID Gabapentin 300 Mg Cap 300 Mg PO BID Alprazolam 0.25 Mg Tab 0.25 Mg PO PRN Synthroid (Levothyroxine Sodium) 75 Mcg Tab 75 Mcg PO DAILY Metoprolol Succinate ER 50 mg (Metoprolol Succinate) 50 Mg Tab 50 Mg PO DAILY Cozaar (Losartan Potassium) 100 Mg Tab 100 Mg PO DAILY Pletal (Cilostazol) 100 Mg Tab 100 Mg PO BID Aspirin 81 Mg Tab 81 Mg PO DAILY stopped on the 21 of january . Current Medications Medications (Trade) Dose Ordered Sig/Cristina Route Start Time Stop Time Status Last Admin (NS Flush) 2 ml UNSCH PRN IV FLUSH 01/06/18 23:15 01/07/18 00:57 (D50w (Vial) Inj) 25 ml UNSCH PRN IV PUSH 01/07/18 02:30 (NovoLIN R SUPPLEMENTAL SCALE) 1 Q6HR SQ 01/07/18 06:00 01/07/18 06:00 (Protonix Inj) 40 mg DAILY IV PUSH 01/07/18 09:00 01/07/18 08:14 (Zofran Inj) 4 mg Q6H PRN IV PUSH 01/07/18 02:30 (Duoneb Neb) 1 ampule Q2HR NEB PRN INH 01/07/18 02:30 Miscellaneous Information 1 Q361D XX 01/07/18 02:30 (Chlorhexidine 2% Cloth) 3 pack Taper DAILY@04 TOP 01/07/18 04:00 01/03/19 03:59 (Chlorhexidine 2% Cloth) 3 pack UNSCH PRN TOP 01/07/18 02:30 (Deb-Colace) 1 tab BID PO 01/07/18 09:00 (Milk Of Magnesia Liq) 30 ml Q12H PRN PO 01/07/18 02:30 (Senokot) 17.2 mg Q12H PRN PO 01/07/18 02:30 (Dulcolax Supp) 10 mg DAILY PRN RECTAL 01/07/18 02:30 (Lactulose Liq) 30 ml DAILY PRN PO 01/07/18 02:30 (Roxicodone) 5 mg Q4H PRN PO 01/07/18 05:15 (Dilaudid Pf Inj) 0.5 mg Q3H PRN IV PUSH 01/07/18 05:15 01/07/18 11:06 Family History Both parents are . One brother of a malignancy -unspecified type. . Substance Use Tobacco: Smoked more than 1 pack per day but quit about 21 years ago Alcohol: Drank alcohol regularly but quit about 3 years ago Prescription med abuse: None Illicits: None . Psychosocial History The patient was born in the [place] area but moved to [place] in 1944. He lives with his . He has been once, for 49 years as of October. He has a son in [place], a son in [place], and a daughter in [place]. 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 . Spiritual/Cultural Factors Congregational background, not affiliated with a particular local hinduism or clergy. does not desire advanced practice psychiatric nurse visits at this time. . Living Will: Never completed Health Care Surrogate: Never completed Durable Power of Account Manager [employer]: Never completed Family/friends goals: The patient's reports that the patient has always been "very stubborn and determined," and that he has always wanted to proceed forward with further aggressive treatments for his cancer. She notes that, if oncology now says there is no further aggressive care appropriate or available, a transition to hospice would be appropriate in her opinion. . Ethical and Legal Issues There are no ethical issues that would impact his care or decision making at this time. The patient lacks capacity at the time of the initial evaluation because he is quite lethargic. The patient's is his healthcare proxy decision-maker. . Physical Exam Vital Signs Date Time Temp Pulse Resp B/P (MAP) Pulse Ox O2 Delivery O2 Flow Rate FiO2 01/07/18 06:36 14 01/07/18 06:00 59 01/07/18 05:30 97.6 59 13 139/65 (89) 100 01/07/18 04:49 01/07/18 04:00 97.6 59 13 139/65 (89) 100 01/07/18 01:50 56 18 168/80 (109) 100 Room Air 01/06/18 23:08 98.4 99 18 163/77 (105) 99 Exam CONSTITUTIONAL/GENERAL: This is a lethargic patient, in no apparent distress. TUBES/LINES/DRAINS: Peripheral IV, Rivera catheter, cervical collar SKIN: Multiple ecchymoses and skin tears, arms more than feet. Skin temperature is quite cool in both feet. Not diaphoretic. HEAD: Some evidence of contusions on the right side of his head and a healing laceration on his right ear. Normocephalic. EYES: Pupils equal and round and reactive. No scleral icterus. No injection or drainage. Fundi not examined. ENT: Nose without bleeding or purulent drainage. Throat without visible erythema , exudates, masses, or lesions. NECK: Trachea midline. Supple, nontender. No palpable thyroid enlargement or nodularity. CARDIOVASCULAR: Regular rate and rhythm without murmurs, gallops, or rubs. No JVD. I am unable to feel ankle/foot pulses. RESPIRATORY/CHEST: Symmetric, unlabored respirations. Clear to auscultation. Breath sounds equal bilaterally. No wheezes, rales, or rhonchi. GASTROINTESTINAL: Abdomen soft, non-tender, nondistended. No hepato-splenomegaly , or palpable masses. No guarding. Bowel sounds present. GENITOURINARY: Without palpable bladder distension. Rivera catheter in place. MUSCULOSKELETAL: Extremities without clubbing, cyanosis, or edema. His toes are quite cool. No mottling or clubbing. LYMPHATICS: No palpable cervical or supraclavicular adenopathy. NEUROLOGICAL: Lethargic, opens eyes, follows some simple commands. PSYCHIATRIC: Difficult to evaluate due to clinical condition . Diagnostic Tests Laboratory Laboratory Tests Test 01/06/18 22:36 01/07/18 04:00 01/07/18 04:05 01/07/18 04:45 White Blood Count 13.0 TH/MM3 (4.0-11.0) Red Blood Count 5.33 MIL/MM3 (4.50-5.90) Hemoglobin 16.0 GM/DL (13.0-17.0) Hematocrit 47.3 % (39.0-51.0) Mean Corpuscular Volume 88.7 FL (80.0-100.0) Mean Corpuscular Hemoglobin 29.9 PG (27.0-34.0) Mean Corpuscular Hemoglobin Concent 33.8 % (32.0-36.0) Red Cell Distribution Width 15.7 % (11.6-17.2) Platelet Count 183 TH/MM3 (150-450) Mean Platelet Volume 7.7 FL (7.0-11.0) Neutrophils (%) (Auto) 86.1 % (16.0-70.0) Lymphocytes (%) (Auto) 3.6 % (9.0-44.0) Monocytes (%) (Auto) 10.0 % (0.0-8.0) Eosinophils (%) (Auto) 0.2 % (0.0-4.0) Basophils (%) (Auto) 0.1 % (0.0-2.0) Neutrophils # (Auto) 11.2 TH/MM3 (1.8-7.7) Lymphocytes # (Auto) 0.5 TH/MM3 (1.0-4.8) Monocytes # (Auto) 1.3 TH/MM3 (0-0.9) Eosinophils # (Auto) 0.0 TH/MM3 (0-0.4) Basophils # (Auto) 0.0 TH/MM3 (0-0.2) CBC Comment AUTO DIFF Differential Comment FINAL DIFF MANUAL Platelet Estimate NORMAL (NORMAL) Platelet Morphology Comment NORMAL (NORMAL) Prothrombin Time 12.7 SEC (9.8-11.6) Prothromb Time International Ratio 1.3 RATIO Activated Partial Thromboplast Time 28.9 SEC (24.3-30.1) Blood Urea Nitrogen 45 MG/DL (7-18) Creatinine 1.94 MG/DL (0.60-1.30) Random Glucose 345 MG/DL (74-106) Total Protein 6.8 GM/DL (6.4-8.2) Albumin 3.3 GM/DL (3.4-5.0) Calcium Level 9.1 MG/DL (8.5-10.1) Alkaline Phosphatase 932 U/L (45-117) Aspartate Amino Transf (AST/SGOT) 115 U/L (15-37) Alanine Aminotransferase (ALT/SGPT) 133 U/L (12-78) Total Bilirubin 1.4 MG/DL (0.2-1.0) Sodium Level 119 MEQ/L (136-145) Potassium Level 6.9 MEQ/L (3.5-5.1) Chloride Level 84 MEQ/L (98-107) Carbon Dioxide Level 24.5 MEQ/L (21.0-32.0) Anion Gap 11 MEQ/L (5-15) Estimat Glomerular Filtration Rate 34 ML/MIN (>89) Total Creatine Kinase 134 U/L (39-308) Creatine Kinase MB 10.3 NG/ML (0.5-3.6) Troponin I 0.07 NG/ML (0.02-0.05) Urine Eosinophils NONE SEEN /HPF (NONE SEEN) Urine Osmolality 797 MOSM/KG (300-1300) Urine Random Creatinine 126.4 MG/DL Urine Random Sodium LESS THAN 5 MEQ/L Serum Osmolality 282 MOSM/KG (275-295) Nasal Screen MRSA (PCR) MRSA NOT DETECTED (NOT Test 01/07/18 05:05 01/07/18 08:54 White Blood Count 14.4 TH/MM3 (4.0-11.0) Red Blood Count 4.94 MIL/MM3 (4.50-5.90) Hemoglobin 14.8 GM/DL (13.0-17.0) Hematocrit 44.2 % (39.0-51.0) Mean Corpuscular Volume 89.4 FL (80.0-100.0) Mean Corpuscular Hemoglobin 30.0 PG (27.0-34.0) Mean Corpuscular Hemoglobin Concent 33.5 % (32.0-36.0) Red Cell Distribution Width 15.5 % (11.6-17.2) Platelet Count 169 TH/MM3 (150-450) Mean Platelet Volume 7.9 FL (7.0-11.0) Prothrombin Time 12.2 SEC (9.8-11.6) Prothromb Time International Ratio 1.2 RATIO Activated Partial Thromboplast Time 29.0 SEC (24.3-30.1) Blood Urea Nitrogen 42 MG/DL (7-18) Creatinine 1.69 MG/DL (0.60-1.30) Random Glucose 266 MG/DL (74-106) Total Protein 6.9 GM/DL (6.4-8.2) Albumin 3.4 GM/DL (3.4-5.0) Calcium Level 9.3 MG/DL (8.5-10.1) Alkaline Phosphatase 945 U/L (45-117) Aspartate Amino Transf (AST/SGOT) 121 U/L (15-37) Alanine Aminotransferase (ALT/SGPT) 136 U/L (12-78) Total Bilirubin 1.7 MG/DL (0.2-1.0) Sodium Level 121 MEQ/L (136-145) Potassium Level 5.9 MEQ/L (3.5-5.1) Chloride Level 86 MEQ/L (98-107) Carbon Dioxide Level 24.9 MEQ/L (21.0-32.0) Anion Gap 10 MEQ/L (5-15) Estimat Glomerular Filtration Rate 40 ML/MIN (>89) Ammonia 14 MCMOL/L (11-32) Result Diagram: 01/07/18 0505 01/07/18 0854 Imaging Last Impressions Renal Ultrasound 01/07/18 0000 Signed Impressions: Service Date/Time: Sunday, January 07, 2018 09:22 - CONCLUSION: 1. Moderate ascites. 2. Small echogenic kidneys suggesting chronic renal disease. Bladimir Campa MD FACR Chest CT 01/07/18 0000 Signed Impressions: Service Date/Time: Sunday, January 07, 2018 01:12 - CONCLUSION: 1. Nondisplaced fracture of the posterolateral right 9th rib with a moderate size right pleural effusion. 2. No focal opacities in the lung and no evidence of pneumothorax. Aureliano Carrillo MD Cervical Spine MRI 01/07/18 0000 Signed Impressions: Service Date/Time: Sunday, January 07, 2018 10:15 - CONCLUSION: 1. Significant spinal stenosis at the C2-C3 level and the C5-C6 level. 2. Mild to moderate spinal stenosis at C4-C5. 3. There is some increased signal in the body of C7 with distal compression. 4. Increased signal is present to posteriorly in the spinal ligaments. Bladimir Campa MD FACR Pelvis X-Ray 01/06/18 0000 Signed Impressions: Service Date/Time: January 23:45 - CONCLUSION: No fracture seen on this limited quality exam. Aureliano Carrillo MD Head CT 01/06/18 0000 Signed Impressions: Service Date/Time: Sunday, January 07, 2018 01:07 - CONCLUSION: 1. Age-appropriate atrophy. 2. No acute findings the brain. Aureliano Carrillo MD Chest X-Ray 01/06/18 0000 Signed Impressions: Service Date/Time: January 23:38 - CONCLUSION: 1. No focal infiltrates in the lung. 2. There is an unusual appearing 3 mm vertical lucency superimposed upon the lateral left shaft. This would be an unusual appearance for pneumothorax and could possibly be superficial to the lungs. Given the history of trauma, however, I would recommend performing a repeat chest x-ray in erect position and expiration. Aureliano Carrillo MD Cervical Spine CT 01/06/18 0000 Signed Impressions: Service Date/Time: Sunday, January 07, 2018 01:07 - CONCLUSION: 1. Fractures at C2 involving the left body, junction of the left pedicle, and displaced fracture of the right lamina. Presumed Concentric impression upon the cord at this level. 2. Displaced fracture of the right lamina of C3 indenting on the bony spinal canal. 3. Right-sided facet fractures involving inferior articular facet of C3 and superior articular facet of C4. No evidence of locked or perched facets. 4. Mildly comminuted fracture of the C7 vertebral body with one fracture line extending from superior to inferior endplate. No associated compression deformity. Aureliano Carrillo MD Patient/Family Conference Present at Family Conference: Patient's . Family Conference Time (mins): 44 Family Conference Location: Consult Room Issues Discussed: * Palliative care role, purpose, approach * Hospice care role, purpose, approach * Additional medical, psychosocial, and spiritual history * Patients general health, functional status, and cognitive changes in the months leading up to the current hospitalization * Patient/family understanding of the current medical problems * Patient/family understanding of prognosis * Patients goals of care as best understood from advance directives and/or conversations and/or values * Current medical treatment options and benefits/burdens of those options * Likely scenarios comparing ongoing aggressive care with a transition to comfort measures only * Questions answered to the best of my ability * Palliative care contact information provided . 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 does not desire advanced practice psychiatric nurse visits at this time. Legal: The patient is lethargic at the time of the initial evaluation, his is his healthcare proxy at this time. Ethical issues impacting care: None . Important Contacts Spouse: Abena Navarro Home: Daughter: Janki Oscar [phone] . Prognosis Overall, the patient's prognosis is quite poor. He has been declining significantly in recent weeks and has known persistent/progressive hepatocellular cancer. He is appropriate for hospice services if the goals become comfort oriented. . Code Status: Full Code Plan * FULL CODE, per 01/07/18 "at least until we hear from oncology and neurosurgery" * DECISION-MAKING: The patient is lethargic and lacks capacity for decision making at the time of my initial evaluation; the patient's is his decision- making proxy. * GOALS: The patient's reports that the patient's goals have always been very aggressive and that he is "stubborn and determined to keep fighting this." However, she favors a transition to hospice care if oncology opines that the patient is no longer a candidate for chemotherapy or other aggressive cancer treatments, and if neurosurgery confirms that no surgical intervention is appropriate or warranted. * SYMPTOMS: The patient has parenteral hydromorphone and oral oxycodone available for treatment of his pain, and I have no further medication recommendations at this time. * Palliative Care will continue to follow the patient during this hospitalization, and I will try to follow up later today after oncology and neurosurgery see the patient. . Time Spent Total Floor Time (mins): 85 Face to Face Time (mins): 15 >50% Counseling/Coord of Care: Yes Thank you for the opportunity to participate in the care of Mr. Navarro. Leatha Wade MD Jan 07, 2018 13:00
[2018-01-07 14:53] LABS: BICARBONATE 22.2 MEQ/L (21.0-32.0); CREATININE 1.49 MG/DL (0.60-1.30)
[2018-01-07] MEDS: SODIUM POLYSTYRENE SULFONATE SUSP 15 GM/60 ML CUP PO SCH ×2 (15:52→22:11)
--- NOTE | 2018-01-07 23:21 | MB ---
cc: Bertin Nesbitt MD, Rohit K MD DATE OF CONSULT: 01/07/2018 REASON FOR CONSULTATION: Cervical spine fractures. HISTORY OF PRESENT ILLNESS: A 77-year-old gentleman who presented to the emergency room early this morning with complaints of neck pain and anterior chest wall pain after a mechanical fall at home. He relates unsteadiness in his gait. He denies any numbness or paresthesias in the upper or lower extremities. He has extensive medical comorbidities including ascites with liver failure and history of hepatocellular cancer, atrial fibrillation on Eliquis anticoagulation as well as sleep apnea. Trauma workup included CT scan of the head which was negative for any intracranial acute abnormality. CT of the cervical spine reveals a fracture involving the C2 vertebral body on the left side extending into the pedicle as well as the right lamina. There is also a right C2 lamina fracture along with right facet fracture at C3 and C4. There is vertebral body C7 fracture extending from the superior to the inferior endplate. The cervical spine alignment is maintained. He also has right 9th rib fracture along with moderate right pleural effusion on the CT of the chest. A subsequent MRI scan of the cervical spine has also been obtained which reveals a moderate spinal stenosis involving the C2-3, C3-4 and C4-5 levels with mild stenosis at C5-6 level along with mild C7 vertebral body compression fractures. 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 MEDICATIONS: Include alendronate, alprazolam, aspirin, calcium, vitamin D, Vitamin B, Lasix, gabapentin, glipizide, insulin, lactulose, Synthroid, Tradjenta, Cozaar, magnesium citrate, metoprolol, nitroglycerine sublingual, Zofran p.r.n., Percocet, Protonix, polyethylene glycol, Xifaxan, Zocor, spironolactone, torsemide. ALLERGIES: NO KNOWN DRUG ALLERGIES SOCIAL HISTORY: He is a former smoker. Denies alcohol use. He is . REVIEW OF SYSTEMS: Pertinent positives as mentioned in the history of present illness. The patient cannot relate a very good history. There is some element of baseline confusion with his cirrhosis. LABORATORY DATA: White blood cell count 14.4, hemoglobin 14.8, platelet count 169. PT 12.2, INR 1.2, PTT 29. Sodium 121, potassium 5.9, BUN 42, creatinine 1.69, glucose 266. PHYSICAL EXAMINATION: VITAL SIGNS: Temperature 97.6, pulse is 59, respiratory rate 13, blood pressure 139/65, oxygen saturation is 93% on room air. GENERAL: This is an elderly male who is in no acute distress lying in his bed with distended abdomen secondary to ascites. HEAD: No Valverde's or raccoon sign. EYES: Pupils are equal and reactive. No conjunctivitis or subconjunctival hemorrhage. NECK: Immobilized in a cervical collar with no jugular venous distention and trachea is midline. CHEST: Clear to auscultation bilaterally. HEART: Irregularly irregular rhythm with a controlled rate. ABDOMEN: Soft and nontender, is significantly distended. No guarding or rigidity. EXTREMITIES: Mild edema with no deformities and extensive abrasions noted in the upper extremities. SKIN: There are abrasions noted in the upper extremities but no rash or skin breakdown or drainage or pustules. NEUROLOGIC: Awake, alert. He knows he is in the hospital but not oriented to the date. Pupils are equal and reactive. Extraocular muscles are intact. Face is symmetric. Tongue is midline. Speech is fluent. He moves all 4 extremities and follows simple commands. Negative Babinski. Negative Anahi's. Light touch sensation is intact bilaterally. IMPRESSION: 1. Multiple cervical spine fracture with associated multilevel stenosis after a fall, likely previous falls also. There does not appear to be any significant related neurologic deficits. 2. 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 3. Severe hyponatremia which is chronic. PLAN: I have recommended Rampart J cervical collar for the cervical fractures. He relates that he will be compliant with its use and will need to wear the collar for 3-4 months to allow the fractures to heal. Regarding the cervical stenosis, he is not myelopathic at this time and, given his extensive medical comorbidities, he is not a candidate for any surgical intervention either. Accordingly, I would recommend conservative management. Increased activity status as tolerated with physical therapy involvement. The family is contemplating possible hospice placement given his end-stage renal disease along with hepatocellular carcinoma and medical comorbidities. MD MADAY Farrar//rodolfo , 07:04 PM , 11:01 PM
[2018-01-08] VITALS (11 sets, daily range): BP systolic 127–171; BP diastolic 66–77; PULSE 70–85; RESP 9–16; TEMP 97.3–98.4; O2SAT 97–98
[2018-01-08] MEDS: INSULIN NovoLIN REGULAR SUPPLEMENTAL SCALE SQ SCH ×4 (00:42→18:00)
--- NOTE | 2018-01-08 01:37 | MB ---
cc: Rinku Del Toro MD DATE OF CONSULT: 01/07/2018 REASON FOR CONSULTATION: A patient with advanced cirrhosis, ascites, hepatocellular carcinoma, and now a fracture of the cervical spine. PATIENT PROFILE: The patient is . He stopped smoking 21 years ago and had smoked 1-1/2 packs of cigarettes per day for 20 years. He stopped drinking 3 years ago, and prior to this, alcohol consumption was 3 drinks a day, 7 days a week. He was born in [place], [place]. He has lived in [place] since 4, residing in [place]. 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 He has 3 children, 2 sons and a daughter. HISTORY OF PRESENT ILLNESS: The patient is a 77-year-old male who has cirrhosis, felt to possibly be related to steatohepatitis from alcohol, but this is not clear to me. He has significant medical problems: He had an [place], and carotid endarterectomy. He has COPD, diabetes, and atrial fibrillation. He has hepatocellular carcinoma and has undergone chemo ablation by Dr. Herzog at [facility] on several occasions. He is no longer a candidate for further liver-directed treatments. I saw him on 12/31/2017. At that time, he gave a history of requiring multiple paracenteses for control of ascites, and he had som ascites. He was also hyponatremic with a sodium of 127. At the visit, discussions ensued about treatment options. He was felt to be a candidate for sorafenib, but I did not feel strongly that there would be a high likelihood of benefit given the refractory ascites and progressive weakness. In any case, he decided he wanted to try sorafenib, and arrangements were made to obtain the medication and start at a reduced dose of 200 mg twice a day. Due to his hyponatremia, I contacted his physician, Dr. Roseann Du, concerning the electrolyte abnormalities. He was also told to discontinue his diuretic. The patient is now hospitalized following a fall causing fractures at C2, C3 and C7. He is in the intensive care unit. He has a neck brace. He had an MRI of the cervical spine and was found to have significant spinal stenosis at C2 and C3 and C5 and C6. There is also increased signal in the body of C7 with distal compression. He is very ill. He is confused and is unable to provide a history. I do not believe that he recognizes me. LABORATORY DATA: His most recently laboratory studies on 01/07/2018: Hemoglobin 14.8, white count 14,000, platelets 169,000. Currently his sodium is 124; on admission 01/06/2018 his sodium was 119. BUN is presently is 40, creatinine is 1.49. Bilirubin is 1.7, AST 121, ALT 136, alk phos 945. A CT scan of the chest dated 01/07/2018 shows nondisplaced fractures of the posterior lateral right 9th rib with a moderate-sized right pleural effusion. A renal ultrasound shows moderate ascites and small kidneys suggestive of chronic renal disease. PAST SURGICAL HISTORY: 1. Bilateral carotid endarterectomies. 2. Bypass surgery left lower extremity. 3. Coronary artery bypass surgery grafting, 3 vessels. 4. Cataract removal. PAST MEDICAL HISTORY: 1. History of atrial fibrillation. 2. Carotid artery stenosis with bilateral carotid endarterectomies. 3. COPD and sleep apnea. 4. Cirrhosis. 5. Coronary artery bypass surgery grafting. 6. Diabetes. 7. Previous [place]. 8. Hepatocellular carcinoma dating back to 2014. 9. Multiple chemo embolizations to the liver. ALLERGIES: NO KNOWN ALLERGIES. CURRENT MEDICINES: 1. Hydromorphone. 2. Insulin. 3. Lactulose. FAMILY HISTORY: Noncontributory. REVIEW OF SYSTEMS: Unobtainable; patient lethargic and confused. PHYSICAL EXAMINATION: GENERAL: Chronically ill and acutely ill gentleman lying in bed. Speech is garbled. He has a neck brace. VITAL SIGNS: Blood pressure is 110/90, respiratory rate is 20, pulse is 70. He is afebrile. O2 sat 93%. HEENT: Head is normocephalic. Sclerae and conjunctivae normal. Oropharynx unremarkable. There is no obvious adenopathy. HEART: Irregular rhythm. LUNGS: Decreased sounds at the bases. ABDOMEN: Massive ascites. EXTREMITIES: Trace edema. MUSCULOSKELETAL: Muscle wasting. NEUROLOGICAL: The patient is confused. Able to move extremities. SKIN: Multiple ecchymoses. ASSESSMENT: The patient is a 77-year-old male. He has progressive hepatocellular carcinoma involving the liver. He has significant cirrhosis with refractory ascites requiring frequent paracenteses and not responding to diuretics. He has severe hyponatremia related to the underlying diseases listed above and possibly diuretics. At this point, I do not have any treatments which I would expect would be effective in restoring his health. Drugs such as sorafenib have limited response rates. His major problem in terms of the liver may not be the hepatocellular carcinoma; it appears to be the cirrhosis and the recurrent effusions. He is profoundly debilitated. I do not believe he is a candidate for any further treatment. He has had a rapidly progressive downhill course. RECOMMENDATIONS: 1. I believe that supportive care with hospice is appropriate, and no cardiopulmonary resuscitation. 2. I contacted the patient's by phone and we spoke about hospice and no CPR. She is agreeable and feels that the most important thing is that her be comfortable. I then asked the nurse, Mee Rodrigues, to speak with the , confirming that her wishes were no CPR and hospice, and she did this. I have placed a consult for hospice care and have changed the code status to NO CPR. MD INDIO Rojas/COLE , 08:42 PM , 01:34 AM MTDD
[2018-01-08] MEDS: HYDROmorphone HCL PF 2 MG/ML VIAL IV PUSH PRN ×4 (02:01→17:43)
[2018-01-08] MEDS: CHLORHEXIDINE GLUCONATE 2 % 1 PACK (2 CLOTHS) TOP SCH (04:00)
[2018-01-08 07:43] LABS: HEMATOCRIT 42.6 % (39.0-51.0); HEMOGLOBIN 14.5 GM/DL (13.0-17.0); MEAN CELL VOLUME 89.2 FL (80.0-100.0); MEAN CORPUSCULAR HEMOGLOBIN 30.2 PG (27.0-34.0); MEAN CORPUSCULAR HGB CONC 33.9 % (32.0-36.0); MEAN PLATELET VOLUME 8.2 FL (7.0-11.0); PLATELET COUNT 174 TH/MM3 (150-450); RED BLOOD COUNT 4.78 MIL/MM3 (4.50-5.90); RED CELL DISTRIBUTION WIDTH 15.2 % (11.6-17.2); WHITE BLOOD COUNT 16.7 TH/MM3 (4.0-11.0)
[2018-01-08 07:52] LABS: INTERNATIONAL NORMALIZED RATIO 1.2 RATIO; PROTHROMBIN TIME - PATIENT 11.8 SEC (9.8-11.6)
[2018-01-08 08:34] LABS: BICARBONATE 25.9 MEQ/L (21.0-32.0); CALCIUM 8.5 MG/DL (8.5-10.1); CREATININE 1.53 MG/DL (0.60-1.30)
[2018-01-08] MEDS: PANTOPRAZOLE SODIUM 40 MG VIAL IV PUSH SCH (09:16)
[2018-01-08] MEDS: DOCUSATE SODIUM 50 MG/SENNA 8.6 MG TAB PO SCH (09:16)
--- NOTE | 2018-01-08 10:36 | HHI.PR ---
Subjective Remarks Follow up Metabolic/Hepatic encephalopathy/hyponatremia 01/08/18-patient seen and examined, sodium 124l patient is alerted oriented to self however reports history and able to name current president. Afebrile. Hospice consultation pending Objective Vitals Vital Signs Date Time Temp Pulse Resp B/P (MAP) Pulse Ox O2 Delivery O2 Flow Rate FiO2 01/08/18 08:56 97 Nasal Cannula 2.00 01/08/18 08:00 70 01/08/18 08:00 98.4 83 9 154/72 (99) 97 01/08/18 06:00 81 01/08/18 04:00 79 01/08/18 04:00 97.5 79 9 127/66 (86) 97 01/08/18 02:00 85 01/08/18 00:00 77 01/08/18 00:00 97.3 77 10 165/72 (103) 98 01/07/18 22:00 76 01/07/18 20:00 70 01/07/18 20:00 97.7 70 12 126/82 (97) 100 01/07/18 19:43 100 Nasal Cannula 2.00 01/07/18 18:00 67 01/07/18 16:58 12 01/07/18 16:00 68 01/07/18 16:00 97.3 68 20 111/93 (99) 93 01/07/18 14:00 62 01/07/18 12:00 60 01/07/18 12:00 97.3 60 13 170/77 (108) 94 I/O 01/07/18 01/07/18 01/07/18 01/08/18 01/08/18 01/08/18 07:00 15:00 23:00 07:00 15:00 23:00 Intake Total 1000 ml Output Total 300 ml 600 ml 200 ml Balance 700 ml -600 ml -200 ml Intake IV Total 1000 ml Output Urine Total 300 ml 600 ml 200 ml # Bowel Movements 0 Result Diagram: 01/08/1818 01/08/18617 Imaging Last Impressions Renal Ultrasound 01/07/18 0000 Signed Impressions: Service Date/Time: Sunday, January 07, 2018 09:22 - CONCLUSION: 1. Moderate ascites. 2. Small echogenic kidneys suggesting chronic renal disease. Bladimir Campa MD FACR Chest CT 3/2/18 0000 Signed Impressions: Service Date/Time: Sunday, January 07, 2018 01:12 - CONCLUSION: 1. Nondisplaced fracture of the posterolateral right 9th rib with a moderate size right pleural effusion. 2. No focal opacities in the lung and no evidence of pneumothorax. Aureliano Carrillo MD Cervical Spine MRI 01/07/18 Signed Impressions: Service Date/Time: Sunday, January 07, 2018 10:15 - CONCLUSION: 1. Significant spinal stenosis at the C2-C3 level and the C5-C6 level. 2. Mild to moderate spinal stenosis at C4-C5. 3. There is some increased signal in the body of C7 with distal compression. 4. Increased signal is present to posteriorly in the spinal ligaments. Bladimir Campa MD FACR Pelvis X-Ray 01/06/18 0000 Signed Impressions: Service Date/Time: January 23:45 - CONCLUSION: No fracture seen on this limited quality exam. Aureliano Carrillo MD Head CT 01/06/18 Signed Impressions: Service Date/Time: Sunday, January 07, 2018 01:07 - CONCLUSION: 1. Age-appropriate atrophy. 2. No acute findings the brain. Aureliano Carrillo MD Chest X-Ray 01/06/18 0000 Signed Impressions: Service Date/Time: January 23:38 - CONCLUSION: 1. No focal infiltrates in the lung. 2. There is an unusual appearing 3 mm vertical lucency superimposed upon the lateral left shaft. This would be an unusual appearance for pneumothorax and could possibly be superficial to the lungs. Given the history of trauma, however, I would recommend performing a repeat chest x-ray in erect position and expiration. Aureliano Carrillo MD Cervical Spine CT 01/06/18 0000 Signed Impressions: Service Date/Time: Sunday, January 07, 2018 01:07 - CONCLUSION: 1. Fractures at C2 involving the left body, junction of the left pedicle, and displaced fracture of the right lamina. Presumed Concentric impression upon the cord at this level. 2. Displaced fracture of the right lamina of C3 indenting on the bony spinal canal. 3. Right-sided facet fractures involving inferior articular facet of C3 and superior articular facet of C4. No evidence of locked or perched facets. 4. Mildly comminuted fracture of the C7 vertebral body with one fracture line extending from superior to inferior endplate. No associated compression deformity. Aureliano Carrillo MD Objective Remarks GENERAL: Lethargic with Roslyn Neck collar in place SKIN: Warm and dry.Multiple bruises to extremities HEAD: Normocephalic. EYES: No scleral icterus. No injection or drainage. Roslyn Neck collar in place NECK: Supple, trachea midline. No JVD or lymphadenopathy. CARDIOVASCULAR: Regular rate and rhythm without murmurs, gallops, or rubs. RESPIRATORY: Breath sounds equal bilaterally. No accessory muscle use. GASTROINTESTINAL: Abdomen soft, non-tender, distended. +BS MUSCULOSKELETAL: No cyanosis, or edema. BACK: Nontender without obvious deformity. No CVA tenderness. A/P Problem List: (1) Hepatic encephalopathy ICD Code: K72.90 - Hepatic failure, unspecified without coma (2) Metabolic encephalopathy ICD Code: G93.41 - Metabolic encephalopathy Assessment and Plan 77-year-old man with Metabolic encephalopathy Hepatic encephalopathy C3-C4 cervical fracture with radiographic evidence of impingement on the cord - Roslyn J collar - avoid long-acting sedatives. -Appreciate input from neurosurgery -Hospice consultation pending Ninth rib fracture Atelectasis Pleural effusion - wean o2 for goal spo2 > 90% - pulmonary toilet. -Duo Neb PRN Elevated troponin, likely type II NSTEMI - unlikely to be ACS. no current symptoms. - telemetry. - will not anticoagulate due to new cervical fracture. Hepatorenal syndrome Acute kidney injury superimposed on chronic renal insufficiency, unknown stage -- Strict I/Os Severe hyponatremia Severe hyperkalemia Acute protein calorie malnutrition- severe End-stage liver disease Hepatocellular carcinoma - regular diet as tolerated. - serial sodiums - Urine osms and serum osms wnl. - prior recent sodium 123 on 12/31/2017. will not aggressively correct - received Kayexalate, d50/insulin, calcium in ER. Hepatocellular carcinoma Coagulopathy secondary to end-stage liver disease - Appreciate input from oncology - Hospice consultation pending Hyperglycemia of critical illness -- SSI Prophylaxis: GI Prophylaxis PPI DVT Prophylaxis -- SCDs Hold pharmacologic DVT prophylaxis given recent neck fracture along with coagulopathy secondary to end-stage liver disease Discharge Planning Discharge patient to Hospice Care center Condition on discharge:Guarded Regular Diet as tolerated Ad Radha activity Rx written: none Follow-up with primary care physician Cong Singh MD Jan 08, 2018 10:36
--- NOTE | 2018-01-08 12:42 | HHI.NSPN ---
(Deandra Broderick) Note Status Status: Progress Note (Deandra Broderick) Interval History Interval History A 77-year-old gentleman who presented to the emergency room early this morning with complaints of neck pain and anterior chest wall pain after a mechanical fall at home. He relates unsteadiness in his gait. He denies any numbness or paresthesias in the upper or lower extremities. He has extensive medical comorbidities including ascites with liver failure and history of hepatocellular cancer, atrial fibrillation on Eliquis anticoagulation as well as sleep apnea. Trauma workup included CT scan of the head which was negative for any intracranial acute abnormality. CT of the cervical spine reveals a fracture involving the C2 vertebral body on the left side extending into the pedicle as well as the right lamina. There is also a right C2 lamina fracture along with right facet fracture at C3 and C4. There is vertebral body C7 fracture extending from the superior to the inferior endplate. The cervical spine alignment is maintained. He also has right 9th rib fracture along with moderate right pleural effusion on the CT of the chest. A subsequent MRI scan of the cervical spine has also been obtained which reveals a moderate spinal stenosis involving the C2-3, C3-4 and C4-5 levels with mild stenosis at C5-6 level along with mild C7 vertebral body compression fractures. 01/08: moves all four extremities off the bed. cervical collar in place. patient has now made a DNR (Deandra Broderick) Labs, Micro, & Vital Signs Results Date Time Temp Pulse Resp B/P (MAP) Pulse Ox O2 Delivery O2 Flow Rate FiO2 01/08/18 12:00 83 01/08/18 12:00 98.2 83 9 137/72 (93) 97 01/08/18 10:00 70 01/08/18 08:56 97 Nasal Cannula 2.00 01/08/18 08:00 70 01/08/18 08:00 98.4 83 9 154/72 (99) 97 01/08/18 06:00 81 01/08/18 04:00 79 01/08/18 04:00 97.5 79 9 127/66 (86) 97 01/08/18 02:00 85 01/08/18 00:00 77 01/08/18 00:00 97.3 77 10 165/72 (103) 98 01/07/18 22:00 76 01/07/18 20:00 70 01/07/18 20:00 97.7 70 12 126/82 (97) 100 01/07/18 19:43 100 Nasal Cannula 2.00 01/07/18 18:00 67 01/07/18 16:58 12 01/07/18 16:00 68 01/07/18 16:00 97.3 68 20 111/93 (99) 93 01/07/18 14:00 62 Constitutional Vital Signs Date Time Temp Pulse Resp B/P (MAP) Pulse Ox O2 Delivery O2 Flow Rate FiO2 01/08/18 12:00 83 01/08/18 12:00 98.2 83 9 137/72 (93) 97 01/08/18 10:00 70 01/08/18 08:56 97 Nasal Cannula 2.00 01/08/18 08:00 70 01/08/18 08:00 98.4 83 9 154/72 (99) 97 01/08/18 06:00 81 01/08/18 04:00 79 01/08/18 04:00 97.5 79 9 127/66 (86) 97 01/08/18 02:00 85 01/08/18 00:00 77 01/08/18 00:00 97.3 77 10 165/72 (103) 98 01/07/18 22:00 76 01/07/18 20:00 70 01/07/18 20:00 97.7 70 12 126/82 (97) 100 01/07/18 19:43 100 Nasal Cannula 2.00 01/07/18 18:00 67 01/07/18 16:58 12 01/07/18 16:00 68 01/07/18 16:00 97.3 68 20 111/93 (99) 93 01/07/18 14:00 62 (Deandra Broderick) Physical Exam GENERAL: This is an elderly male who is in no acute distress in his bed with distended abdomen secondary to ascites. HEAD: No Valverde's or raccoon sign. EYES: Pupils are equal and reactive. No conjunctivitis or subconjunctival hemorrhage. NECK: Immobilized in a cervical collar with no jugular venous distention and trachea is midline. CHEST: Clear to auscultation bilaterally. HEART: Irregularly irregular rhythm with a controlled rate. ABDOMEN: Soft and nontender, is significantly distended. No guarding or rigidity. EXTREMITIES: Mild edema with no deformities and extensive abrasions noted in the upper extremities. SKIN: There are abrasions noted in the upper extremities but no rash or skin breakdown or drainage or pustules. NEUROLOGIC: Awake, alert. He knows he is in the hospital but not oriented to the date. Pupils are equal and reactive. Extraocular muscles are intact. Face is symmetric. Tongue is midline. Speech is fluent. He moves all 4 extremities and follows simple commands. Negative Babinski. Negative Anahi's. Light touch sensation is intact bilaterally. (Deandra Broderick) GENERAL: This is an elderly male who is in no acute distress in his bed with distended abdomen secondary to ascites. NEUROLOGIC: Awake, alert. He knows he is in the hospital but not oriented to the date. Pupils are equal and reactive. Extraocular muscles are intact. Face is symmetric. Tongue is midline. Speech is fluent. He moves all 4 extremities and follows simple commands. Negative Babinski. Negative Anahi's. Light touch sensation is intact bilaterally. NECK: Immobilized in a cervical collar with no jugular venous distention and trachea is midline. CHEST: Clear to auscultation bilaterally. HEART: Irregularly irregular rhythm with a controlled rate. ABDOMEN: Soft and nontender, is significantly distended. No guarding or rigidity. EXTREMITIES: Mild edema with no deformities and extensive abrasions noted in the upper extremities. SKIN: There are abrasions noted in the upper extremities but no rash or skin breakdown or drainage or pustules. (Alli Caban MD) Medications Current Medications Current Medications Medications (Trade) Dose Ordered Sig/Cristina Route PRN Reason Start Time Stop Time Status Last Admin Dose Admin Sodium Chloride (NS Flush) 2 ml UNSCH PRN IV FLUSH FLUSH AFTER USING IV ACCESS 01/06/18 23:15 01/07/18 00:57 Dextrose (D50w (Vial) Inj) 25 ml UNSCH PRN IV PUSH HYPOGLYCEMIA-SEE COMMENTS 01/07/18 02:30 Insulin Human Regular (NovoLIN R SUPPLEMENTAL SCALE) 1 Q6HR SQ 01/07/18 06:00 01/08/18 05:35 Pantoprazole Sodium (Protonix Inj) 40 mg DAILY IV PUSH 01/07/18 09:00 01/08/18 09:16 Ondansetron HCl (Zofran Inj) 4 mg Q6H PRN IV PUSH NAUSEA OR VOMITING 01/07/18 02:30 Albuterol/ Ipratropium (Duoneb Neb) 1 ampule Q2HR NEB PRN INH WHEEZING 01/07/18 02:30 Miscellaneous Information 1 Q361D XX 01/07/18 02:30 Chlorhexidine Gluconate (Chlorhexidine 2% Cloth) 3 pack Taper DAILY@04 TOP 01/07/18 04:00 01/03/19 03:59 Chlorhexidine Gluconate (Chlorhexidine 2% Cloth) 3 pack UNSCH PRN TOP HYGIENIC CARE 01/07/18 02:30 Senna/Docusate Sodium (Deb-Colace) 1 tab BID PO 01/07/18 09:00 01/08/18 09:16 Magnesium Hydroxide (Milk Of Magnesia Liq) 30 ml Q12H PRN PO Mild constipation 01/07/18 02:30 Sennosides (Senokot) 17.2 mg Q12H PRN PO Moderate constipation 01/07/18 02:30 Bisacodyl (Dulcolax Supp) 10 mg DAILY PRN RECTAL SEVERE CONSITIPATION/ IF NPO 01/07/18 02:30 Lactulose (Lactulose Liq) 30 ml DAILY PRN PO SEVERE CONSITIPATION/ IF PO 01/07/18 02:30 Oxycodone HCl (Roxicodone) 5 mg Q4H PRN PO pain 1-5 01/07/18 05:15 01/08/18 01:20 Hydromorphone HCl (Dilaudid Pf Inj) 0.5 mg Q3H PRN IV PUSH pain 6-10 or not taking po 01/07/18 05:15 01/08/18 11:16 (Deandra Broderick) Current Medications Current Medications Sodium Chloride (NS Flush) 2 ml UNSCH PRN IV FLUSH FLUSH AFTER USING IV ACCESS Last administered on 01/07/18at 00:57; Start 01/06/18 at 23:15; Stop 01/08/18 at 19: 02; Status DC Calcium Gluconate (Calcium Gluconate Inj) 1 gm ONCE ONCE IV PUSH Last administered on 01/07/18at 00:57; Start 01/07/18 at 00:30; Stop 01/07/18 at 00:31; Status DC Insulin Human Regular (NovoLIN R INJ) 8 units ONCE ONCE IV PUSH Last administered on 01/07/18at 00:57; Start 01/07/18 at 00:30; Stop 01/07/18 at 00:31; Status DC Sodium Polystyrene Sulfonate (Kayexalate Liq) 30 gm ONCE ONCE PO Last administered on 01/07/18at 01:02; Start 01/07/18 at 00:30; Stop 01/07/18 at 00:31; Status DC Sodium Chloride 1,000 ml @ 999 mls/hr BOLUS ONCE IV Last administered on at 00:56; Start 01/07/18 at 00:30; Stop 01/07/18 at 01:30; Status DC Morphine Sulfate (Morphine Inj) 2 mg ONCE ONCE IV PUSH Last administered on 01/07/18at 01:41; Start 01/07/18 at 01:00; Stop 01/07/18 at 01:01; Status DC Dextrose (D50w (Vial) Inj) 25 ml UNSCH PRN IV PUSH HYPOGLYCEMIA-SEE COMMENTS; Start 01/07/18 at 02:30; Stop 01/08/18 at 19:02; Status DC Insulin Human Regular (NovoLIN R SUPPLEMENTAL SCALE) 1 Q6HR SQ Last administered on 01/08/18at 05:35; Start 01/07/18 at 06:00; Stop 01/08/18 at 19:02; Status DC Pantoprazole Sodium (Protonix Inj) 40 mg DAILY IV PUSH Last administered on 01/08at 09:16; Start 01/07/18 at 09:00; Stop 01/08/18 at 19:02; Status DC Ondansetron HCl (Zofran Inj) 4 mg Q6H PRN IV PUSH NAUSEA OR VOMITING; Start 01/07/18 at 02:30; Stop 01/08/18 at 19:02; Status DC Albuterol/ Ipratropium (Duoneb Neb) 1 ampule Q2HR NEB PRN INH WHEEZING; Start 01/07/18 at 02:30; Stop 01/08/18 at 19:02; Status DC Miscellaneous Information 1 Q361D XX ; Start 01/07/18 at 02:30; Stop 01/08/18 at 19:02; Status DC Chlorhexidine Gluconate (Chlorhexidine 2% Cloth) 3 pack Taper DAILY@04 TOP ; Start 01/07/18 at 04:00; Stop 01/08/18 at 19:02; Status DC Chlorhexidine Gluconate (Chlorhexidine 2% Cloth) 3 pack UNSCH PRN TOP HYGIENIC CARE; Start 01/07/18 at 02:30; Stop 01/08/18 at 19:02; Status DC Senna/Docusate Sodium (Deb-Colace) 1 tab BID PO Last administered on 01/08/18at 09:16; Start 01/07/18 at 09:00; Stop 01/08/18 at 19:02; Status DC Magnesium Hydroxide (Milk Of Magnesia Liq) 30 ml Q12H PRN PO Mild constipation ; Start 01/07/18 at 02:30; Stop 01/08/18 at 19:02; Status DC Sennosides (Senokot) 17.2 mg Q12H PRN PO Moderate constipation; Start 01/07/18 at 02:30; Stop 01/08/18 at 19:02; Status DC Bisacodyl (Dulcolax Supp) 10 mg DAILY PRN RECTAL SEVERE CONSITIPATION/ IF NPO ; Start 01/07/18 at 02:30; Stop 01/08/18 at 19:02; Status DC Lactulose (Lactulose Liq) 30 ml DAILY PRN PO SEVERE CONSITIPATION/ IF PO; Start 01/07/18 at 02:30; Stop 01/08/18 at 19:02; Status DC Oxycodone HCl (Roxicodone) 5 mg Q4H PRN PO pain 1-5 Last administered on at 01:20; Start 01/07/18 at 05:15; Stop 01/08/18 at 19:02; Status DC Hydromorphone HCl (Dilaudid Pf Inj) 0.5 mg Q3H PRN IV PUSH pain 6-10 or not taking po Last administered on 01/08/18at 17:43; Start 01/07/18 at 05:15; Stop 01/08 at 19:02; Status DC Sodium Polystyrene Sulfonate (Kayexalate Liq) 30 gm Q2H PO Last administered on 01/07/18at 22:11; Start 01/07/18 at 14:00; Stop 01/07/18 at 16:01; Status DC (Alli Caban MD) Medical Decision Making MDM Remarks 77 male 1. Multiple cervical spine fracture with associated multilevel stenosis after a fall, likely previous falls also. There does not appear to be any significant related neurologic deficits. 2. 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 3. Severe hyponatremia which is chronic. (Deandra Broderick) Plan Plan Remarks maintain [place] collar patient is now a DNR, possible hospice (Deandra Broderick) Attending Statement As above he has severe cervical spinal stenosis with spinal cord compression at multiple levels. The alternatives of treatment have been discussed by Dr. Nesbitt. Prognosis is guarded at this point, as the family is considering palliative care evaluation Continue neuro checks in a serial fashion. Pulmonary. Continue aggressive pulmonary toilette, nasotracheal suction, and breathing treatments with nebulizers. Daily PT and OT Renal. Continue to monitor closely urine output, BUN and creatinine Endocrine. Continue to Monitor serial Acu checks and SSI as needed in detail ID continue to monitor for signs of infection Continue Protonix for stress ulcer prophylaxis Continue Ramon hose and SCD's for DVT prophylaxis The exam, history, and the medical decision-making described in the above note were completed with the assistance of the mid-level provider. I reviewed and agree with the findings presented. I attest that I had a [id number] encounter with the patient on the same day, and personally performed and documented my assessment and findings in the medical record. (Alli Caban MD) Deandra Broderick Jan 08, 2018 12:42 Alli Caban MD Jan 10, 2018 12:45
== END 2018-01-08 19:00 | disposition hospice, inpatient (51) | DRG 551 ==
LOC: NEPE 22:56 → NEDA 01-07 02:20 → HIMN 01-07 04:20
PROVIDERS: ADMIT Hospitalist; ATTEND Hospitalist
DX: S12.190A Other displaced fracture of second cervical vertebra, initial encounter for closed fracture (principal); K76.7 Hepatorenal syndrome; I21.A1 Myocardial infarction type 2; E43 Unspecified severe protein-calorie malnutrition; N17.9 Acute kidney failure, unspecified; C22.0 Liver cell carcinoma; G93.41 Metabolic encephalopathy; J90 Pleural effusion, not elsewhere classified; D68.4 Acquired coagulation factor deficiency; E87.1 Hypo-osmolality and hyponatremia; S22.31XA Fracture of one rib, right side, initial encounter for closed fracture; J98.11 Atelectasis; K72.90 Hepatic failure, unspecified without coma; E11.22 Type 2 diabetes mellitus with diabetic chronic kidney disease; E11.42 Type 2 diabetes mellitus with diabetic polyneuropathy; I48.91 Unspecified atrial fibrillation; G62.9 Polyneuropathy, unspecified; E11.51 Type 2 diabetes mellitus with diabetic peripheral angiopathy without gangrene; Z99.81 Dependence on supplemental oxygen; K70.31 Alcoholic cirrhosis of liver with ascites; J44.9 Chronic obstructive pulmonary disease, unspecified; E87.5 Hyperkalemia; I12.9 Hypertensive chronic kidney disease with stage 1 through stage 4 chronic kidney disease, or unspecified chronic kidney disease; E86.0 Dehydration; E07.9 Disorder of thyroid, unspecified; G47.30 Sleep apnea, unspecified; I25.2 Old myocardial infarction; S12.290A Other displaced fracture of third cervical vertebra, initial encounter for closed fracture; S12.390A Other displaced fracture of fourth cervical vertebra, initial encounter for closed fracture; S12.690A Other displaced fracture of seventh cervical vertebra, initial encounter for closed fracture; W10.8XXA Fall (on) (from) other stairs and steps, initial encounter; Y93.01 Activity, walking, marching and hiking; M81.0 Age-related osteoporosis without current pathological fracture; I25.10 Atherosclerotic heart disease of native coronary artery without angina pectoris; Y92.009 Unspecified place in unspecified non-institutional (private) residence as the place of occurrence of the external cause; Z79.02 Long term (current) use of antithrombotics/antiplatelets; E78.00 Pure hypercholesterolemia, unspecified; Z95.1 Presence of aortocoronary bypass graft; Z92.21 Personal history of antineoplastic chemotherapy; Z87.891 Personal history of nicotine dependence; Z51.5 Encounter for palliative care; E11.65 Type 2 diabetes mellitus with hyperglycemia; M48.02 Spinal stenosis, cervical region; K75.81 Nonalcoholic steatohepatitis (NASH); Z66 Do not resuscitate; Z91.81 History of falling; S40.812A Abrasion of left upper arm, initial encounter; S40.811A Abrasion of right upper arm, initial encounter; Z79.4 Long term (current) use of insulin; N18.9 Chronic kidney disease, unspecified
CPT/HCPCS: 51702; 70450; 71045; 71250; 72125; 72141; 72170; 76775; 80048; 80053; 82140; 82550; 82552; 82570; 82948; 83930; 83935; 84295; 84300; 84484; 84540; 85007; 85027; 85610; 85730; 87205; 87641; 93005; 94150; 94640; 94667; 94668; 96361; 96374; 96375; C9113; J0610; J1170; J1815; J2270; J7030; L0150; L0172